=== PATIENT | female | born 1985 | race Caucasian/White ===

== ENCOUNTER → 2022-05-22 08:47 | Outpatient (BNVA) | payer OTHER, SELFPAY | PROVIDERS: Referring Provider Family Medicine; Visit Provider Specialist | DX: G56.03 Carpal tunnel syndrome, bilateral upper limbs (principal) | CPT/HCPCS: 73110 ==

== ENCOUNTER 2022-11-20 20:08 | Emergency (ER) | payer MEDICAID, SELFPAY ==
[2022-11-20 20:09] VITALS: BP 176/100; PULSE 83; RESP 18; TEMP 36.7; O2SAT 98
--- NOTE | 2022-11-20 21:12 | ED_ITS ---
HPI - Back Pain/Injury General: Chief Complaint: Back Pain/Injury Stated Complaint: Upper Back Pain Time Seen by Provider: 11/20/22 20:57 History of Present Illness: 37-year-old female comes in today with complaints of left flank pain that radiates around to her left lower abdomen. Patient reports this started last night suddenly. Patient feels like it is right under her rib. Patient reports no nausea or vomiting. Patient is unable to get comfortable with the pain. Patient reports a history of pyelonephritis but no history of renal stones. Review of the record notes major depressive disorder and anxiety disorder. Patient also takes methylphenidate for probable ADHD alth ough no definitive diagnosis in the chart. Associated symptoms: Reports abdominal pain; Deny fever(s), nausea or vomiting Review of Systems Const: Denies: fever(s) ENMT: Denies: throat pain Card: Denies: chest pain Resp: Denies: dyspnea GI: Reports: abdominal pain; Denies: nausea, vomiting, diarrhea or constipation : Reports: flank pain Musc: Reports: back pain Skin/Breast: Denies: rash PFSH ED PFSH: Social History Smoking and tobacco status: former smoker Quit status (tobacco): has tried quititng Number of times tried to quit tobacco: 4 Second hand smoke exposure: No Current occupation: [employer] Physical Exam Const: COMMON NORMALS: alert HENMT: COMMON NORMALS: normocephalic HEAD & SCALP: normocephalic Neck/C-Spine: COMMON NORMALS: full ROM Resp: COMMON NORMALS: normal respiratory effort and clear to auscultation bilaterally AUSCULTATION: clear to auscultation bilaterally Cardio: COMMON NORMALS: regular rate and regular rhythm RATE: regular rate RHYTHM: regular rhythm GI: PALPATION: Yes Tenderness to palpation present (GI) Details: LLQ : BLADDER/KIDNEY EXAM: Yes CVA tenderness on the left Back/Pelvis: GENERAL BACK: Yes CVA tenderness THORACIC SPINE/UPPER BACK: No thoracic spinal tenderness LUMBAR SPINE/LOWER BACK: No lumbar spinal tenderness and No paraspinal muscle tenderness Extremity: COMMON NORMALS: normal to inspection Neuro: SENSORIUM/ORIENTATION: Yes alert Skin: COMMON NORMALS: turgor normal GENERAL SKIN EXAM: turgor normal Course Vital Signs: Vital signs: Vital Signs Temperature 98.0 F 11/20/22 20:09 Pulse Rate 83 11/20/22 20:09 Respiratory Rate 18 11/20/22 20:09 Blood Pressure 176/100 11/20/22 20:09 Pulse Oximetry 98 11/20/22 20:09 Oxygen Delivery Me thod 11/20/22 20:09 MDM - Back Pain/Injury Medical Decision Making 37-year-old female comes in today for complaints of left flank pain radiating to her left abdomen starting last night. Patient reports unable to get any pain relief with [id number] ibuprofen. Patient denies any nausea or vomiting. Patient moves all extremities well. Some CVA tenderness is noted on percussion of the left side. No paraspinous muscle tenderness or spinal tenderness is noted. Differential diagnosis includes but not limited to gastritis, gallbladder disease, renal calculi, pyelonephritis. CT noted large amount of gallbladder stones otherwise no signs of inflammation or other abnormality. CBC and CMP was ordered and no gallbladder infection or obstruction was noted. Believe the patient's pain is probably secondary to gallbladder colic. Recommen d follow-up with surgeon for further evaluation and treatment. Patient was written for dicyclomine and hydrocodone to help control pain. Ondansetron 4 nausea. Patient reported understanding of care plan and need for follow-up or return to the ER. Labs 11/20/22 22:22 11/20/22 22:22 Radiology Impressions Abdomen/Pelvis CT 11/20/22 21:22 IMPRESSION: 1. Negative for acute inflammatory process in the abdomen or pelvis 2. Gastric surgical sutures. 3. Cholelithiasis. 4. Constipation. 5. Fluid in the uterus suspected likely related menstrual status. Laboratory Results WBC 4.9 10^3/uL (4.0-10.0) 11/20/22 22: RBC 4.49 10^6/uL (4.1-5.3) 11/20/22 22: Hgb 12.1 g/dL (11.5-15.3) 11/20/22 22: Hct 37.8 % (37.0-47.0) 11/20/22 22: MCV 84.2 fl (81-99) 11/20/22 22: MCH 26.9 pg (28.0-34.0) L 11/20/22: MCHC 32.0 g/dL (30.0-36.0) 11/20/22: RDW 13.3 % (12.1-15.1) 11/20/22: Plt Count 259 10^3/cmm (130-400) 11/20/22 22: MPV 9.4 fL (7.4-10.4) 11/20/22: Neut % (Auto) 53.4 % 11/20/22: Lymph % (Auto) 36.2 % 11/20/22: Teller % (Auto) 8.0 % 11/20/22: Eos % (Auto) 1.0 % 11/20/22: Baso % (Auto) 0.4 % 11/20/22: Neut # (Auto) 2.61 10^3/uL (1.8-7.7) 11/20/22: Lymph # (Auto) 1.8 10^3/uL (0.8-4.8) 11/20/22: Teller # (Auto) 0.4 10^3/uL (0.2-0.9) 11/20/22: Eos # (Auto) 0.1 10^3/uL (0.0-0.8) 11/20/22: Baso # (Auto) 0.0 10^3/uL (0.0-0.1) 11/20/22: Nucleated RBC % (auto) 0 % 11/20/22: Nucleated RBCs # 0.0 /100WBC 11/20/22 22: Sodium 138 mmol/L (136-145) 11/20/22 22: Potassium 4.3 mmol/L (3.5-5.1) 11/20/22: Chloride 103 mmol/L (98-107) 11/20/22: Carbon Dioxide 27 mmol/L (22-29) 11/20/22 22: Anion Gap 12.3 (5-19) 11/20/22 22: BUN 13 mg/dL (6-20) 11/20/22: Creatinine 0.8 mg/dL (0.5-0.9) 11/20/22: GFR Calculation 81.6 mL/min (90-130) L 11/20/22 22: Glucose 107 mg/dL (65-115) 11/20/22 22: Calculated Osmolality 287 mOsm/kg (285-295) 11/20/22 22: Calcium 8.4 mg/dL (8.5-10.5) L 11/20/22 22: Total Bilirubin 0.6 mg/dL (0.15-1.2) 11/20/22 22: AST U/L (0-32) 11/20/22 22: ALT 21 U/L (0-33) 11/20/22 22: Alkaline Phosphatase 53 U/L (35-105) 11/20/22 22: Total Protein 6.6 g/dL (6.6-8.7) 11/20/22: Albumin 3.5 g/dL (3.5-5.2) 11/20/22: Globulin 3.1 g/dL (1.3-4.6) 11/20/22 22: Lipase 43 U/L (13-60) 11/20/22 22: Urine Color Yellow (Yellow) 11/20/22 21:03 Urine Appearance Clear (CLEAR) 11/20/22 21: Urine pH 6 (5-7) 11/20/22 21:03 Ur Specific Fisk 1.025 (1.005-1.030) 11/20/22 21:03 Urine Protein Neg (Negative) 11/20/22 21:03 Urine Glucose (UA) Norm (Normal) 11/20/22 21:03 Urine Ketones Negative (Negative) 11/20/22 21:03 Urine Blood Neg (Negative) 11/20/22 21:03 Urine Nitrate Positive (Negative) H 11/20/22 21:03 Urine Bilirubin Neg (Negative) 11/20/22 21:03 Urine Urobilinogen Norm mg/dL (Negative) 11/20/22 21:03 Ur Leukocyte Esterase Negative (Negative) 11/20/22 21:03 Urine RBC 0-4 /hpf (0-2) H 11/20/22 21:03 Urine WBC 5-10 /hpf (0-5) H 11/20/22 21:03 Ur Squamous Epith Cells 5-10 /hpf (0-5) H 11/20/22 21:03 Amorphous Sediment Not Reportable 11/20/22 21:03 Urine Bacteria 4+ /hpf (NONE) H 11/20/22 21:03 Urine HCG, Qual Negative (Negative) 11/20/22 21:03 Discharge Plan Discharge Patient Disposition: Home Clinical Impression: Gallbladder colic, Multiple gallstones Condition: Stable Prescriptions: New ondansetron 4 mg tablet,disintegrating 4 mg PO Q8H PRN (Reason: nausea and vomiting) Qty: 10 0RF hydrocodone-acetaminophen 5-325 mg tablet 1 tab PO Q8H PRN (Reason: pain (scale score 7-10)) Qty: 10 0RF dicyclomine 20 mg tablet 20 mg PO TID PRN (Reason: gallbladder pain) Qty: 30 0RF No Action fluoxetine [Prozac] 20 mg capsule 20 mg PO DAILY buspirone 10 mg tablet 10 mg PO DAILY albuterol sulfate 90 mcg/actuation aerosol powdr breath activated 2 inh inhalation Q6H PRN methylphenidate HCl [Concerta] 18 mg tablet extended release 24hr 18 mg PO DAILY Discharge Orders: Discharge ED (Routine); Ordered 11/20/22 Ordered By: Yuan Molina Discharge Diet: Usual diet Discharge Activity: Increase activity as tolerated Patient Instructions: Abdominal Pain (ED) Activity Restrictions/Additional Instructions: Home and rest. Clear liquid diet until pain resolves. Drink plenty of water with medication. Use dicyclomine 20 mg every 8 hours to relieve abdominal pain related to the gallbladder. This may be similar to pain in the mid abdomen that refers to the back and spasms in waves. Use ondansetron as needed for nausea or vomiting. Take hydrocodone for severe pain. Follow-up with surgeon for further evaluation and treatment. Coding Level of Care Code ED [employer] for Sanaz Teixeira
--- NOTE | 2022-11-20 21:22 | CTR_ITS ---
PROCEDURE INFORMATION: Exam: CT Abdomen And Pelvis Without Contrast Exam date and time: 11/20/2022 9:34 PM Age: 37 years old Clinical indication: Pain; Other: Left flank; Additional info: Left flank pain TECHNIQUE: Imaging protocol: Computed tomography of the abdomen and pelvis without contrast. Radiation optimization: All CT scans at this facility use at least one of these dose optimization techniques: automated exposure control; mA and/or kV adjustment per patient size (includes targeted exams where dose is matched to clinical indication); or iterative reconstruction. REPORTING DATA: Count of CT and Cardiac NM exams in prior 12 months: This patient has received 0 known CTs and 0 known cardiac nuclear medicine studies in the 12 months prior to the current study. COMPARISON: No relevant prior studies available. RADIATION DOSE METRICS: Total DLP (mGy-cm): 964.63 FINDINGS: Liver: Normal. No mass. Gallbladder and bile ducts: Cholelithiasis. Pancreas: Normal. No ductal dilation. Spleen: Normal. No splenomegaly. Adrenal glands: Normal. No mass. Kidneys and ureters: Normal. No hydronephrosis. Stomach and bowel: Gastric surgical sutures. Constipation. Appendix: No evidence of appendicitis. Intraperitoneal space: Unremarkable. No free air. No significant fluid collection. Vasculature: Unremarkable. No abdominal aortic aneurysm. Lymph nodes: Unremarkable. No enlarged lymph nodes. Urinary bladder: Unremarkable as visualized. Reproductive: Fluid in the uterus suspected likely related menstrual status. Bones/joints: Unremarkable. No acute fracture. Soft tissues: Unremarkable. CT/CT kidney stone [id number] IMPRESSION: 1. Negative for acute inflammatory process in the abdomen or pelvis 2. Gastric surgical sutures. 3. Cholelithiasis. 4. Constipation. 5. Fluid in the uterus suspected likely related menstrual status.
[2022-11-20 21:23] LABS: Bilirubin Urine Neg (Negative); Blood Urine Neg (Negative); Glucose Urine UA Norm (Normal); Ketones Urine Negative (Negative); Leukocyte Esterase Urine Negative (Negative); Protein Urine Neg (Negative); Specific Gravity, Urine 1.025 (1.005-1.030); Urine Appearance Clear (CLEAR); Urine Color Yellow (Yellow); Urobilinogen Urine Norm (Negative); pH Urine 6 (5-7)
[2022-11-20 21:24] LABS: Nitrate Urine Positive (Negative)
[2022-11-20 21:27] LABS: Add Urine Microscopic? YES
[2022-11-20 21:28] LABS: Bacteria Urine 4+ /hpf; RBC Urine 0-4 /hpf (0-2)
[2022-11-20 21:29] LABS: Add Urine Culture? Yes
[2022-11-20] MEDS: ketorolac 30 mg/mL INJ IM (21:44)
[2022-11-20] MEDS: morphine 4 mg/mL SDV 1 mL IM (21:44)
[2022-11-20 22:27] LABS: Basophils % 0.4 %; Eosinophils # 0.1 10^3/uL (0.0-0.8); Hematocrit 37.8 % (37.0-47.0); Hemoglobin 12.1 g/dL (11.5-15.3); Lymphocytes # 1.8 10^3/uL (0.8-4.8); Lymphocytes % 36.2 %; Mean Corpuscular Hemoglobin 26.9 pg (28.0-34.0); Mean Corpuscular Volume 84.2 fl (81-99); Mean Platelet Volume 9.4 fL (7.4-10.4); Monocytes # 0.4 10^3/uL (0.2-0.9); Neutrophils # 2.61 10^3/uL (1.8-7.7); Neutrophils % 53.4 %; Nucleated Red Blood Cells % 0 %; Platelet Count 259 10^3/cmm (130-400); Red Blood Count 4.49 10^6/uL (4.1-5.3); Red Cell Distribution Width 13.3 % (12.1-15.1); White Blood Count 4.9 10^3/uL (4.0-10.0)
[2022-11-20 22:40] LABS: Albumin Level 3.5 g/dL (3.5-5.2); Alkaline Phosphatase 53 U/L (35-105); Anion Gap 12.3 (5-19); Blood Urea Nitrogen 13 mg/dL (6-20); Calcium 8.4 mg/dL (8.5-10.5); Carbon Dioxide 27 mmol/L (22-29); Chloride 103 mmol/L (98-107); Globulin 3.1 g/dL (1.3-4.6); Glomerular Filtration Rate 81.6 mL/min (90-130); Glucose 107 mg/dL (65-115); Lipase 43 U/L (13-60); Osmolality Calculated 287 mOsm/kg (285-295); Potassium 4.3 mmol/L (3.5-5.1); Sodium 138 mmol/L (136-145); Total Bilirubin 0.6 mg/dL (0.15-1.2); Total Protein 6.6 g/dL (6.6-8.7)
[2022-11-20 23:19] LABS: Alanine Aminotransferase 21 U/L (0-33)
--- NOTE | 2022-11-21 09:36 | DCPLANNER ---
Addendum entered by Rizwana Nix 12/11/22 08:15: Patient had a follow up appointment scheduled with general surgery - patient did not attend appointment Addendum entered by Rizwana Nix 12/09/22 08:18: Patient has a follow up appointment scheduled for Saturday, December 10, 2022 at 2:[address] Moreira at general surgery. Clinic will call patient with appointment information. Original Note: manager in training had message to schedule a follow up appointment for patient with general surgery. manager in training sent patients information to the front office staff at general surgery. Patients information will be printed and reviewed. Clinic will call patient with appointment information.
== END 2022-11-20 23:06 | disposition home or self-care (01) ==
PROVIDERS: Emergency Provider Nurse Practitioner Family
DX: K80.20 Calculus of gallbladder without cholecystitis without obstruction (principal); Z87.891 Personal history of nicotine dependence
CPT/HCPCS: 74176; 80053; 81001; 81025; 83690; 85025; 87077; 87086; 87186; 96372; 99285; J1885; J2270

== ENCOUNTER → 2023-06-24 14:32 | Outpatient (BNVA) | payer BC, SELFPAY | PROVIDERS: PCP Family Medicine; Referring Provider Nurse Practitioner Family; Visit Provider Surgery | DX: K92.0 Hematemesis (principal); K92.1 Melena; R14.0 Abdominal distension (gaseous); K21.9 Gastro-esophageal reflux disease without esophagitis | CPT/HCPCS: 99204 ==

== ENCOUNTER 2023-08-06 08:40 | Day surgery (SDC) | payer BC, MEDICAID, SELFPAY ==
[2023-08-06 09:07] VITALS: BP 140/91; PULSE 84; RESP 18; TEMP 36.4; O2SAT 94; BMI 43.6
[2023-08-06] MEDS: sodium chloride 0.9% 1,000 ML 30 ML IV (09:27)
--- NOTE | 2023-08-06 09:27 | ANES.PREANE2 ---
Pre-Anesthetic Assessment Height/Weight: Height 1.55 m Weight 104.78 kg Temp Pulse Resp BP Pulse Ox O2 Del Method 97.5 F L 84 18 140/91 94 Room Air 08/06/23 09:07 08/06/23 09:07 08/06/23 09:07 08/06/23 09:07 08/06/23 09:07 08/06/23 09:07 Preop Diagnosis: GERD/Abdominal bloating Operation Date: 08/06/23 10:00 Proposed Procedures p [id number] egd [id number] colon G0121 screen colon A risk k92.0,k92.1,R14.0,k21.9(Not Applicable) - DO jennifer Apodaca Colonoscopy(Not Applicable) - Cricket Moreira DO Familial anesthetic complications: None Was Beta Lyly taken within 24 hours: N/A Was Clonidine taken within 24 hours: N/A Last intake: Intake Last Liquid Date 08/05/23 Last Liquid Time 22:00 Last Solid Date 08/04/23 Last Solid Time 23:00 Social Alcohol (Hasn't had a drink in 7 weeks, used to drink daily) and No tobacco Exam alert, oriented x 3, clear to auscultation bilaterally and regular rate & rhythm Airway Submandibular: within normal limits Cervical ROM: within normal limits Mallampati: Class II Dentition: false and partials History/ROS No significant history except as noted and No significant complaints Pulmonary Asthma, Exertional Dyspnea and Sleep Apnea CV/HEM Hypertension None reported Hepatic High liver count per patient GI Gastroesophageal Reflux Disease Metabolic Morbid Obesity Musc/skel Lower Back Pain Neuropsych Anxiety, Depression, Headache (BP related) and Neuropathy Anesthetic Plan ASA status: 3 Anesthesia: Anesthesia Evaluation, General and MAC Risk of > 500 ml blood loss (7ml/kg in children): No Medications/Allergies Home Medications Medication Instructions Recorded Confirmed Last Taken Type albuterol sulfate 90 mcg/actuation 2 inh inhalation Q6H PRN Shortness 08/02/21 08/06/23 4 Months Ago History breath activated powder inhaler Of Breath ~04/05/23 fluoxetine 20 mg capsule (Prozac) 20 mg PO DAILY 08/02/21 08/04/23 08/03/23 History pantoprazole 40 mg tablet,delayed 40 mg PO BID 6 weeks #84 tabs 06/24/23 08/04/23 08/03/23 Rx release (Protonix) lisinopril 10 mg tablet 10 mg PO DAILY 08/04/23 08/04/23 08/03/23 History Allergies Allergy/AdvReac Type Severity Reaction Status Date / Time escitalopram [From Lexapro] Allergy Severe Unknown Verified 08/04/23 11:17 cefuroxime [From Ceftin] Allergy Intermediate Hives. Verified 08/04/23 11:17 [facility] Anesthesia Surgical History (Updated 06/24/23 @ 15:14 by Cricket Moreira DO) History of sleeve gastrectomy History of tonsillectomy and adenoidectomy Hx laparoscopic cholecystectomy Hx of section Social History Smoking and tobacco/nicotine status: former use of tobacco/nicotine Quit status (tobacco/nicotine): has tried quititng Number of times tried to quit tobacco: 4 Second hand smoke exposure: No Current occupation: [employer] Female Reproductive History Date of last menstrual period: 07/26/23 Data Anesthesia Cardiac Studies: No Data to Display
[2023-08-06 09:33] LABS: OR HCG Qualitative Urine Negative (Negative)
--- NOTE | 2023-08-06 12:53 | PM.HP ---
Providers/Chief Complaint Primary Care Provider: Donaldo Nicholson Chief Complaint: 25134 G0121 History of Present Illness Estela Kolb is a 38 year old female Review of Systems General: Reports: 10 or more systems reviewed and unremarkable except in HPI and below Medications/Allergies Home Medications Medication Instructions Recorded Confirmed Last Taken Type albuterol sulfate 90 mcg/actuation 2 inh inhalation Q6H PRN Shortness 08/02/21 08/06/23 4 Months Ago History breath activated powder inhaler Of Breath ~04/05/23 fluoxetine 20 mg capsule (Prozac) 20 mg PO DAILY 08/02/21 08/04/23 08/03/23 History pantoprazole 40 mg tablet,delayed 40 mg PO BID 6 weeks #84 tabs 06/24/23 08/04/23 08/03/23 Rx release (Protonix) lisinopril 10 mg tablet 10 mg PO DAILY 08/04/23 08/04/23 08/03/23 History Allergies Allergy/AdvReac Type Severity Reaction Status Date / Time escitalopram [From Lexapro] Allergy Severe Unknown Verified 08/04/23 11:17 cefuroxime [From Ceftin] Allergy Intermediate Hives. Verified 08/04/23 11:17 PFSH Acute PFSH: Surgical History History of sleeve gastrectomy History of tonsillectomy and adenoidectomy Hx laparoscopic cholecystectomy Hx of section Social History Smoking and tobacco/nicotine status: former use of tobacco/nicotine Quit status (tobacco/nicotine): has tried quititng Number of times tried to quit tobacco: 4 Second hand smoke exposure: No Current occupation: [employer] Female Reproductive History: Date of last menstrual period: 07/26/23 Vitals/I&O/Wt Last Vital Signs Temp 97.5 F L 08/06/23 09:07 Pulse 84 08/06/23 09:07 Resp 18 08/06/23 09:07 BP 140/91 08/06/23 09:07 Pulse Ox 94 08/06/23 09:07 O2 Del Method Room Air 08/06/23 09:07 Weight last 48 hrs Weight 231 lb A&P Assessment and plan (1) GERD (gastroesophageal reflux disease): (2) Hematochezia: (3) Bloating: Plan EGD and colonoscopy Attestations Medical Necessity Statement*: home Coding Level of Care Code Acute Code for g Fwd Diagnoses GERD (gastroesophageal reflux disease) K21.9 Hematochezia K92.1 Bloating R14.0
[2023-08-06 13:22] VITALS: BP 111/69; PULSE 88; RESP 16; TEMP 36.2; O2SAT 95
[2023-08-06 13:32] VITALS: BP 129/86; PULSE 88; RESP 16; O2SAT 96
--- NOTE | 2023-08-06 17:49 | ANE.PACU2 ---
Inpatient post-anesthesia follow up: Airway intact: Yes Vital signs: Temperature 97.2 F Pulse Rate 88 Respiratory Rate 16 Blood Pressure 129/86 Pulse Oximetry 96 Oxygen Delivery Me thod Room Air Oxygen Flow Rate 2 Fraction of Inspir ed Oxygen Hydration adequate: Yes Nausea and vomiting: No Pain level: 2 Mental status: Baseline
== END 2023-08-06 13:51 | disposition home or self-care (01) ==
PROVIDERS: Anesthesiology; PCP Family Medicine; Visit Provider Surgery
PROC: 0DJ08ZZ Inspection of Upper Intestinal Tract, Via Natural or Artificial Opening Endoscopic (ICD-10-PCS; CPT 43235; principal; 2023-08-06 10:00)
PROC: 0DJD8ZZ Inspection of Lower Intestinal Tract, Via Natural or Artificial Opening Endoscopic (ICD-10-PCS; CPT 45378; 2023-08-06 10:00)
DX: K92.0 Hematemesis (principal); K92.1 Melena; R14.0 Abdominal distension (gaseous); K21.9 Gastro-esophageal reflux disease without esophagitis; K64.8 Other hemorrhoids; K44.9 Diaphragmatic hernia without obstruction or gangrene; K29.50 Unspecified chronic gastritis without bleeding; J45.909 Unspecified asthma, uncomplicated; G47.30 Sleep apnea, unspecified; I10 Essential (primary) hypertension; Z87.891 Personal history of nicotine dependence
CPT/HCPCS: 43239; 45378; 76937; 81025; 84703; 88305; 88342; J2704; J7030

== ENCOUNTER 2023-09-29 23:56 | Emergency (ER) | payer BC, MEDICAID, SELFPAY ==
[2023-09-30 00:02] VITALS: BP 192/121; PULSE 85; RESP 17; TEMP 36.9; O2SAT 96; BMI 42.5
--- NOTE | 2023-09-30 00:16 | XRR_ITS ---
PROCEDURE INFORMATION: Exam: XR Right Hand Exam date and time: 09/30/2023 12:26 AM Age: 38 years old Clinical indication: Injury or trauma; Other: Llac; Laceration; Right; Middle finger; Patient HX: Small lac to volar surface of third digit. ; Additional info: Fb TECHNIQUE: Imaging protocol: Radiologic exam of the right hand. Views: 3 or more views. COMPARISON: No relevant prior studies available. FINDINGS: Bones/joints: No acute fracture or dislocation is noted. The skeletal structures seem age-appropriate. Soft tissues: Unremarkable. XR/XR hand RT min 3V* [id number] IMPRESSION: No acute findings.
--- NOTE | 2023-09-30 00:16 | XRR_ITS ---
PROCEDURE INFORMATION: Exam: XR Left Hand Exam date and time: 09/30/2023 12:24 AM Age: 38 years old Clinical indication: Injury or trauma; Laceration; Left; Index finger; Patient HX: Small lac to second digit. ; Additional info: Fb TECHNIQUE: Imaging protocol: Radiologic exam of the left hand. Views: 3 or more views. COMPARISON: No relevant prior studies available. FINDINGS: Bones/joints: No acute fracture or dislocation is noted. The skeletal structures seem age-appropriate. Soft tissues: Index finger swelling. No foreign body noted. Overlying gauze. XR/XR hand LT min 3V* [id number] IMPRESSION: No acute osseous findings.
--- NOTE | 2023-09-30 00:17 | ED_ITS ---
HPI - Skin/Abscess/Foreign Bdy General: Chief complaint: Skin/Abscess/Foreign Body Stated complaint: skin reaction Time Seen by Provider: 09/30/23 00:10 Source: patient Mode of arrival: ambulatory Limitations: no limitations History of Present Illness: 38-year-old female who states she feels like she has metal shavings in her hand she has been picking at both hands and has been making superficial cuts try to get the shavings out she denies any SI or HI she did answer my questions appropriately here. 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 but she had some loose pieces and then did pull 1 piece out of her finger she states Associated symptoms: Deny chills, fever(s), nausea or vomiting Review of Systems Const: Denies: fever(s) or chills ENMT: Denies: throat pain or dental pain Card: Denies: chest pain Resp: Denies: dyspnea GI: Denies: abdominal pain, nausea, vomiting or diarrhea Musc: Denies: neck pain or back pain Skin/Breast: Reports: pruritus; Denies: rash Neuro: Denies: headache(s) PFSH ED PFSH: Surgical History History of sleeve gastrectomy Hx laparoscopic cholecystectomy Hx of section History of tonsillectomy and adenoidectomy Social History Smoking and tobacco/nicotine status: former use of tobacco/nicotine Quit status (tobacco/nicotine): has tried quititng Number of times tried to quit tobacco: 4 Second hand smoke exposure: No Current occupation: [employer] Physical Exam Const: COMMON NORMALS: no acute distress, patient oriented x3 and healthy appearing HENMT: COMMON NORMALS: normocephalic and atraumatic HEAD & SCALP: normocephalic and atraumatic Neck/C-Spine: COMMON NORMALS: full ROM and supple Chest: COMMONS NORMALS: normal inspection of the chest Resp: COMMON NORMALS: normal respiratory effort Cardio: COMMON NORMALS: regular rate, regular rhythm and No murmurs present (Cardio) RATE: regular rate RHYTHM: regular rhythm Extremity: COMMON NORMALS: full ROM Neuro: COMMON NORMALS: patient oriented x3, moves all extremities and no focal motor deficits Psych: COMMON NORMALS: mental status grossly normal, Normal thought process present and cooperative THOUGHT PROCESS: Normal thought process present Skin: COMMON NORMALS: no wounds NARRATIVE SKIN EXAM: Cracked skin from where she is picked on her skin no foreign bodies noted Course Vital Signs: Vital signs: Vital Signs Temperature 98.5 F 09/30/23 00:02 Pulse Rate 85 09/30/23 00:02 Respiratory Rate 17 09/30/23 00:02 Blood Pressure 192/121 09/30/23 00:02 Pulse Oximetry 96 09/30/23 00:02 Oxygen Delivery Me thod Room Air 09/30/23 00:02 MDM - Skin/Abscess/Foreign Bdy Medicial Decision Making Patient presents here with feeling of foreign body under skin and she had used wound while she could have had some metal in her skin x-ray shows no signs of any metal shaving she does have dry skin she is to use lotion she does not appear acutely psychotic she stable for discharge follow-up PCP return if worsening. Medical Records I reviewed the patient's medical records. XR interpretation done by ED provider, pending radiology final review ED provider radiology interpretation(s): xr hand bilateral: no foreign bodies Discharge Plan Discharge Patient Disposition: Home Clinical Impression: Foreign body hand Condition: Stable Prescriptions: No Action fluoxetine [Prozac] 20 mg capsule 20 mg PO DAILY albuterol sulfate 90 mcg/actuation aerosol powdr breath activated 2 inh inhalation Q6H PRN (Reason: Shortness Of Breath) pantoprazole [Protonix] 40 mg tablet,delayed release (DR/EC) 40 mg PO BID 42 Days Qty: 84 0RF lisinopril 10 mg tablet 10 mg PO DAILY Discharge Orders: Discharge ED (Routine); Ordered 09/30/23 Ordered By: Marcos Pack Referrals: Donaldo Nicholson [Primary Care Provider] - Discharge Diet: Advance as tolerated Discharge Activity: Resume usual activity Patient Instructions: Soft Tissue Foreign Body (ED) Coding Level of Care Code ED Certified Indoor Environmentalist for Sanaz Teixeira
[2023-09-30 00:38] VITALS: BP 161/122
== END 2023-09-30 00:40 | disposition home or self-care (01) ==
PROVIDERS: Emergency Provider Emergency Medicine; PCP Family Medicine
DX: S60.552A Superficial foreign body of left hand, initial encounter (principal); S60.551A Superficial foreign body of right hand, initial encounter; X58.XXXA Exposure to other specified factors, initial encounter; Z87.891 Personal history of nicotine dependence
CPT/HCPCS: 73130; 99283

== ENCOUNTER → 2024-03-10 15:01 | Outpatient (BNVA) | payer BC, MEDICAID, SELFPAY | PROVIDERS: PCP Family Medicine; Referring Provider Nurse Practitioner Family; Visit Provider Specialist | DX: G56.03 Carpal tunnel syndrome, bilateral upper limbs (principal) | CPT/HCPCS: 73130 ==

== ENCOUNTER 2025-03-03 15:15 | Emergency (ER) | payer OTHER, BC, MEDICAID, SELFPAY ==
[2025-03-03 15:15] VITALS: BP 169/119; PULSE 100; RESP 16; O2SAT 92; BMI 43.4
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
[2025-03-03] MEDS: sodium chloride 0.9% 1,000 ML 999 ML IV (16:41)
[2025-03-03] MEDS: lisinopril 10 mg Tablet PO (16:43)
[2025-03-03 16:46] VITALS: BP 174/110
[2025-03-03 16:52] LABS: Basophils % 0.9 %; Eosinophils # 0.1 10^3/uL (0.0-0.8); Eosinophils % 2.4 %; Hematocrit 40.7 % (36-47); Lymphocytes # 1.5 10^3/uL (0.8-4.8); Lymphocytes % 34.1 %; Mean Corpuscular HGB Conc 31.9 g/dL (30-55); Mean Corpuscular Hemoglobin 26.2 pg (27-33); Mean Corpuscular Volume 82.1 fl (85-98); Mean Platelet Volume 9.1 fL (7.4-10.4); Monocytes # 0.4 10^3/uL (0.2-0.9); Monocytes % 9.9 %; Neutrophils % 51.8 %; Nucleated Red Blood Cells % 0 %; Platelet Count 197 10^3/cmm (157-399); Red Blood Count 4.96 10^6/uL (3.85-5.65); Red Cell Distribution Width 17.8 % (12.1-15.1); White Blood Count 4.25 10^3/uL (3.29-11.43)
[2025-03-03 17:01] LABS: Bilirubin Urine Negative (Negative); Blood Urine Negative (Negative); Glucose Urine UA Negative (Normal); Ketones Urine Negative (Negative); Leukocyte Esterase Urine Negative (Negative); Nitrate Urine Negative (Negative); Protein Urine Negative (Negative); Specific Gravity, Urine 1.004 (1.005-1.030); Urine Appearance Clear (CLEAR); Urine Color Yellow (Yellow); pH Urine 7.5 (5-7)
[2025-03-03 17:03] LABS: HCG Qualitative Urine. Negative (Negative)
[2025-03-03 17:07] LABS: Add Urine Microscopic? YES; Bacteria Urine None Seen /hpf; Hyaline Casts Urine 0-4 /lpf; RBC Urine 0-2 /hpf (0-2); Squamous Epithelial Cell Urine 0-5 /hpf (0-5); WBC Urine 0-5 /hpf (0-5)
[2025-03-03 17:09] LABS: Add Urine Culture? No
[2025-03-03 17:10] LABS: Alanine Aminotransferase 133 U/L (0-33); Albumin Level 3.8 g/dL (3.5-5.2); Alcohol Level 281 mg/dL (0-10); Alkaline Phosphatase 65 U/L (35-105); Blood Urea Nitrogen 4 mg/dL (6-20); Calcium 8.2 mg/dL (8.5-10.5); Carbon Dioxide 22 mmol/L (22-29); Chloride 98 mmol/L (98-107); Creatinine Clr Calc Pharmacy 141.3098; Globulin 3.5 g/dL (1.3-4.6); Glomerular Filtration Rate 111.9 mL/min (90-130); Glucose 91 mg/dL (65-115); Osmolality Calculated 278 mOsm/kg (285-295); Sodium 136 mmol/L (136-145); Total Bilirubin 0.8 mg/dL (0.15-1.2); Total Protein 7.3 g/dL (6.6-8.7)
[2025-03-03 17:12] LABS: Anion Gap 20.2 (5-19); Aspartate Amino Transferase 141 U/L (0-32); Potassium 4.2 mmol/L (3.5-5.1)
--- NOTE | 2025-03-03 17:52 | PC.NURSE ---
this nurse assumed care from BANNER team @[phone].
[2025-03-03 18:07] VITALS: BP 140/89; PULSE 93; O2SAT 91
== END 2025-03-03 18:25 | disposition home or self-care (01) ==
PROVIDERS: Emergency Provider Emergency Medicine; PCP Family Medicine
DX: T76.21XA Adult sexual abuse, suspected, initial encounter (principal); Z87.891 Personal history of nicotine dependence; X58.XXXA Exposure to other specified factors, initial encounter
CPT/HCPCS: 36415; 80053; 80307; 81001; 81025; 85025; 99283; J7030; J9999

== ENCOUNTER 2025-05-23 23:46 | Inpatient (IN) | payer BC, SELFPAY ==
[2025-05-23 23:47] VITALS: BP 175/108; PULSE 91; RESP 18; TEMP 36.9; O2SAT 97; BMI 37.8
[2025-05-24] VITALS (13 sets, daily range): BP systolic 116–174; BP diastolic 60–106; PULSE 82–110; RESP 16–18; TEMP 36.3–36.8; O2SAT 95–98
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
--- OUTSIDE RECORDS SUMMARY | 2025-05-24 | XMS_ITS | Patient Health Record ---
Author Organization [facility] Address [address] [place], [place] [id number] Care Team Providers Care Mine Technician Name Role Phone Bia Robbins Unavailable [phone] Allergies Allergen (clinical drug ingredient) Drug/Non Drug Allergy documented on EMR Reaction Allergy Type Onset Date Status Ceftin Hives Drug Allergy Active escitalopram Lexapro Unknown Drug Allergy Acti ve Reason For Referral No Information Medications Medication SIG (Take, Route, Frequency, Duration) Notes Start Date End Date Status Multivitamins - Capsule Orally daily Active Triamcinolone Acetonide 0.025 % Cream 1 application to affected area Externally Twice a day 01/27/2017 Active Cyclobenzaprine HCl 5 MG Tablet 1 tablet as needed Orally at bedtime 12/17/2018 Active Adderall XR 30 MG Capsule Extended Release 24 Hour 1 capsule in the morning Orally once a day 11/11/2019 Active Adderall 15 MG Tablet 1 tablet in the afternoon Orally Once a day 11/26/2019 Active Erythromycin 2 % Solution apply small am ount externally twice a day Externally Twice a day 09/04/2016 Active PROzac 20 MG Capsule 1 capsule Orally On ce a day Active ProAir HFA 108 (90 Base) MCG/ACT Aerosol Solution 2 puffs as needed Inhalation every 4 hrs Active Fluticasone-Salmeterol 100-50 MCG/DOSE Aerosol Powder Breath Activated 1 puff Inhalation Twice a day 10/19/2018 Active busPIRone HCl 15 MG Tablet 1 tablet Oral ly Twice a day 10/14/2019 Active Immunizations Vaccine Route Administration Date Status Comme nts BOOSTRIX Tetanus Toxoid, Reduced Diphtheria Toxoid and Acellular Pertusis Unknown 07/21/2014 Administered DT Unknown 09/29/2004 Administered Only year gi felipa. Influenza 3 yrs+ IIV4 (Fluzone) Unknown 07/21/2014 Administered Pneumococcal Conjugate (historical) Unknown 01/05/2013 Administered Social History Tobacco Use: Social History Observation Description Date Details (start date - stop date) Current Smoker NA - NA Social History Social History Social Info Question Answer Notes Tobacco Use (MU) Status: Current Smoker vapes, sm okes a few cig a day, started to smoke rt after Smoke Exposure No Additional Details Category Social Info Options Details Social History Occupation: [employer]. Alcohol: Occasional Recreational drug use: no Exercise: Light Home smoke detector use: yes Caffeine: None or very rar e Marital Status: Lives with jacinto hahn (Emmanuelle (05/04), Flakita (08/11)); 01/13-- (Alireza Kassidy--metastatic small intestine cancer) Seat Belt Use: always Section Notes: Hearing: not impaired Vision impaired: contacts/glasses Highest Education Level Attained: high school graduate Hearing: not impaired Vision impaired: contacts/glasses Highest Education Level Attained: high school graduate Hearing: not impaired Vision impaired: contacts/glasses Highest Education Level Attained: high school graduate Hearing: not impaired Vision impaired: contacts/glasses Highest Education Level Attained: high school graduate Hearing: not impaired Vision impaired: contacts/glasses Highest Education Level Attained: high school graduate Hearing: not impaired Vision impaired: contacts/glasses Highest Education Level Attained: high school graduate Hearing: not impaired Vision impaired: contacts/glasses Highest Education Level Attained: high school graduate Hearing: not impaired Vision impaired: contacts/glasses Highest Education Level Attained: high school graduate Hearing: not impaired Vision impaired: contacts/glasses Highest Education Level Attained: high school graduate Hearing: not impaired Vision impaired: contacts/glasses Highest Education Level Attained: high school graduate Hearing: not impaired Vision impaired: contacts/glasses Highest Education Level Attained: high school graduate Hearing: not impaired Vision impaired: contacts/glasses Highest Education Level Attained: high school graduate Hearing: not impaired Vision impaired: contacts/glasses Highest Education Level Attained: high school graduate Hearing: not impaired Vision impaired: contacts/glasses Highest Education Level Attained: high school graduate Hearing: not impaired Vision impaired: contacts/glasses Highest Education Level Attained: high school graduate Hearing: not impaired Vision impaired: contacts/glasses Highest Education Level Attained: high school graduate Hearing: not impaired Vision impaired: contacts/glasses Highest Education Level Attained: high school graduate Hearing: not impaired Vision impaired: contacts/glasses Highest Education Level Attained: high school graduate Hearing: not impaired Vision impaired: contacts/glasses Highest Education Level Attained: high school graduate Hearing: not impaired Vision impaired: contacts/glasses Highest Education Level Attained: high school graduate Hearing: not impaired Vision impaired: contacts/glasses Highest Education Level Attained: high school graduate Hearing: not impaired Vision impaired: contacts/glasses Highest Education Level Attained: high school graduate Hearing: not impaired Vision impaired: contacts/glasses Highest Education Level Attained: high school graduate Hearing: not impaired Vision impaired: contacts/glasses Highest Education Level Attained: high school graduate Hearing: not impaired Vision impaired: contacts/glasses Highest Education Level Attained: high school graduate Hearing: not impaired Vision impaired: contacts/glasses Highest Education Level Attained: high school graduate Hearing: not impaired Vision impaired: contacts/glasses Highest Education Level Attained: high school graduate Hearing: not impaired Vision impaired: contacts/glasses Highest Education Level Attained: high school graduate Problems Problem Type SNOMED Code ICD Code Onset Dates Problem Status W/U Status Risk Notes Problem Depression (964682204) Depression (F32.9) Active confirmed Problem Endometriosis (131418053) Endometriosis (N80.9) Active confirmed Problem Mild persistent asthma (010449182) Mild persistent asthma (J45.30) Active confirmed Problem Generalized anxiety disorder (88894997) Generalized anxiety disorder (F41.1) Active confirmed Problem Impaired fasting glycaemia (272228187) Impaired fasting blood sugar (R73.01) Active confirmed Problem History of cardiomyopathy (331376807681600 ) History of cardiomyopathy (Z86.79) Active confirmed 2013 Problem Moderate major depression, single episode (88114260) Moderate single current episode of major depressive disorder (F32.1) Active confirmed Problem Severe recurrent major depression without psychotic features (04424956) Severe episode of recurrent major depressive disorder, without psychotic features (F33.2) Active confirmed Problem Adult attention deficit disorder (790776242) Attention deficit disorder of adult (F98.8) Active confirmed Plan Of Treatment No Information Insurance Providers Payer Name Payer Address Payer Phone Subscriber Number Group Number Insured Name Patient Relationship to Insured Coverage Start Date Coverage End Date Jeyson Mead [address] [place] [address] [id number] Estela Kolb Self - patient is the insured [employer] [address] [place] [address] [id number] Estela Kolb Self - patient is the insured Medical (General) History Medical History History ICD Code MRSA --furuncle L hip (2014); cleared 20 Asthma Migraine Cellulitis of face Syndrome, carpal tunnel Obesity Vaginal candidiasis Internal hemorrhoids without mention of complication Viral pneumonia, unspecified Amenorrhea Abnormal fasting blood sugar cardiomyopathy-2012 DM Retinopathy exam 10/24/15-no retinopat hy Elevated blood pressure (not hypertensio n) Elevated blood pressure (not hypertensio n) Obesity (BMI 35.0-39.9 without comorbidi ty) Surgical History Surgery Date(Month/Year) Bariatric surgery -Dr Oliveira 09/2016 C-sections x2 - Dr. Porter D&C - Dr. Porter 2007 Ovarian Cyst - Dr. Porter Tubes in ears x5 T&A 9 yo I & D Post Op Wound Infection Left Hip D luis [facility] 10-20-14 Hospitalization History Reason Date(Month/Year) Major depression 2006 Major depression, suicide attempt (Tamiko victor) 12/23/18-12/28/18
--- OUTSIDE RECORDS SUMMARY | 2025-05-24 | XMS_ITS | Clinical Summary ---
Author Organization [facility] Address [address] [place] [address] Care Team Providers Care Colorman Name Role Phone Donaldo Nicholson MD Primary Care Provider [phone] Allergies Active Allergy Reactions Criticality Noted Date Comments Cefuroxime Axetil Hives High 05/30/2021 Ciprofloxacin Hives High 12/23/2022 Escitalopram Unknown High 05/10/2025 Medications furosemide (LASIX) 20 mg tabletIndication s:Benign hypertension Take 1 Tablet (20 mg) by mouth every 12 hours as needed for Pain. 90 Tablet 1 5 Active pantoprazole (PROTONIX) 40 mg Tablet, Delayed Release (E.C.)Indication s:Epigastric pain Take 1 Tablet (40 mg) by mouth 2 times daily. 100 Tablet 3 5 Active lisinopriL (PRINIVIL) 5 mg tabletIndication s:Benign hypertension Take 1 Tablet (5 mg) by mouth daily. 100 Tablet 3 5 Active FLUoxetine (PROzac) 20 mg capsuleIndicatio ns:Generalized anxiety disorder Take 1 Capsule (20 mg) by mouth daily. 30 Capsule 2 5 Active promethazine-dex tromethorphan (PHENERGAN-DM) 6.25-15 mg/5 mL syrupIndications :Upper respiratory tract infection, unspecified type Take 5 mL by mouth every 6 hours as needed for Cough. 120 mL 1 5 Active albuterol sulfate HFA 90 mcg/actuation aerosol inhalerIndicatio ns:Mild intermittent asthma without complication Take 2 Puffs by inhalation every 6 hours as needed for Shortness of Breath. 6.7 Gram 5 5 Active ondansetron (ZOFRAN ODT) 4 mg Tablet, Rapid Dissolve Take 1 Tablet (4 mg) by mouth every 8 hours as needed for Nausea/Emesis. Dissolve tablet on top of tongue, then swallow with saliva. 20 Tablet 5 Active prochlorperazine maleate (COMPAZINE) 10 mg tablet Take 1 Tablet (10 mg) by mouth every 6 hours as needed for Nausea. 25 Tablet 5 Active clindamycin HCL (CLEOCIN) 300 mg Capsule Take 1 Capsule (300 mg) by mouth 3 times daily for 7 days. 21 Capsule 5 05/17/20 25 chlorhexidine gluconate 0.12 % Mouthwash 15 mL by Mouth/Throat route 2 times daily for 10 days. 300 mL 5 05/20/20 25 mupirocin (BACTROBAN) 2 % Ointment Apply to affected area 2 times daily for 7 days. 22 Gram 5 05/17/20 25 Active Problems Problem Noted Date Diagnosed Date Benign hypertension 07/08/2023 Biliary colic 12/27/2022 H/O gastric sleeve 12/25/2022 Right upper quadrant pain 12/24/2022 Elevated liver enzymes 12/24/2022 Cholelithiases 12/24/2022 Prediabetes 12/24/2022 Morbid obesity with body mass index of 40.0-49.9 02/22/2022 Tobacco use 02/22/2022 Generalized anxiety disorder 05/30/2021 Recurrent major depressive disorder, in partial remission 05/30/2021 PTSD (post-traumatic stress disorder) 05/30/2021 ADHD 05/30/2021 Hx of tubal ligation 05/30/2021 History of tonsillectomy 05/30/2021 History of bariatric surgery 05/30/2021 Mild intermittent asthma without complication Encounters Date Type Department Care Team Description 05/10/2025 4:33 PM CDT - 05/10/2025 5:22 PM CDT Emergency [facility] Emergency Medicine [address] [place] [address] Dental infection (Primary Dx); Cellulitis of face Discharge Disposition: Home or Self Care 05/10/2025 External Device Data ST[facility] ABSTRACTION Provider, Abstract 05/10/2025 External Device Data [facility] ABSTRACTION Provider, Abstract 05/10/2025 Travel 05/09/2025 3:59 AM CDT - 05/09/2025 5:35 AM CDT Emergency [address] [address] Harry Beauchamp MD Alcoholism ([facility]) (Primary Dx) Discharge Disposition: Home or Self Care 05/09/2025 Travel 05/04/2025 External Device Data STL ABSTRACTION Provider, Abstract 04/13/2025 External Device Data [facility] ABSTRACTION Provider, Abstract 04/13/2025 External Device Data [facility] ABSTRACTION Provider, Abstract 03/16/2025 External Device Data [facility] ABSTRACTION Provider, Abstract 03/16/2025 External Device Data [facility] ABSTRACTION Provider, Abstract 03/15/2025 External Device Data ST[facility] ABSTRACTION Provider, Abstract 03/14/[address] [address] Donaldo Nicholson MD appointment 03/12/2025 6:42 PM CDT - 03/12/2025 9:05 PM CDT Emergency [address] [address] Matthew Inman MD COVID-19 virus detected (Primary Dx); Nausea and vomiting, unspecified vomiting type Discharge Disposition: Home or Self Care 03/12/2025 Travel 03/10/2025 8:44 PM CDT - 03/10/2025 10:15 PM CDT [address] [address] Matthew Inman MD COVID-19 virus detected (Primary Dx); Mild intermittent asthma without complication Discharge Disposition: Home or Self Care 03/10/2025 Travel 03/09/2025 8:00 AM CDT Office Visit [address] [place] [address] Anya Acuña, AMMY Body aches (Primary Dx); Cough, unspecified type; Upper respiratory tract infection, unspecified type 03/07/2025 Orders Only [facility] Health Information Management [place] [address] [place] [address] Provider, Abstract 03/03/2025 7:45 AM CDT - 03/03/2025 11:59 PM CDT Hospital Encounter [facility] [place] [address] [facility] [address] [place] [address] Ambulance, [facility] Discharge Disposition: [facility] 02/22/2025 External Device Data STL ABSTRACTION Provider, Abstract from Last 3 Months Immunizations Immunization Administration Dates Next Due (ADACEL/BOOSTRIX)(10 YR UP) TDAP VACCINE, 0.5ML, IM 07/21/2014,07/19/2013 INFLUENZA VACCINE QUADRIVALENT 6 MOS UP IM 07/21 Influenza Seasonal Unspecified Formulation IM Family History Medical History Relation Name Comments No Known Problems Brother Melanoma Father Relation Name Status Comments Brother Alive Father Mother Social History Tobacco Use Types Packs/Day Years Used Date Smoking Tobacco: Former Cigarettes Q uit: 03/01/2022 Smokeless Tobacco: Never Tobacco Cessation:Counseling Given: Not Answered Alcohol Use Standard Drinks/Week Comments Not Currently 0 (1 standard drink = 0.6 oz pur e alcohol) sometimes, quit 05/09/25 Feeling Safe Answer Date Recorded Are you in a relationship wi th someone who hurts you emotionally and/or physically? No 05/10/2025 Comments No Sex and Gender Information Value Date Recorded Sex Assigned at Not on file Legal Sex Female 12:55 PM CDT Gender Identity Female 06/16/2024 11:23 PM CDT Sexual Orientation Not on file Last Filed Vital Signs Vital Sign Reading Time Taken Comments Blood Pressure 150/98 05/10/2025 4:41 PM CDT Pulse 94 05/09/2025 5:30 AM CDT Temperature 36.5 C (97.7 F) 05/10/2025 4:41 PM CDT Respiratory Rate 18 05/10/2025 4:41 PM CDT Oxygen Saturation 96% 05/10/2025 4:41 PM CDT Inhaled Oxygen Concentration - - Weight 95.2 kg (209 lb 12.8 oz) 05/10/2025 4:41 PM CDT Height 154.9 cm (5' 1 ) 05/10/2025 4:41 PM CDT Body Mass Index 39.64 05/10/2025 4:41 PM CDT Plan of Treatment Health Maintenance Due Date Last Done Comments HPV VACCINES (1 - 3-dose series) 2002 HEPATITIS B VACCINES (1 of 3 - 19+ 3-dose series) 2006 COVID-19 Vaccine (2 - 2023-2 5 season) 2024 05/02/2021 DTAP/TDAP/TD VACCINES (3 - T d or Tdap) 07/21/2024 07/21/2014, 07/19/2013 INFLUENZA VACCINE (#1) 2025 , 09/02/2024, 06/19/2023, Additional history exists Preventative Visit-Managed Medicaid 09/03/2025 09/02/2024, 11/28/2016, 11/29/2015, Additional history exists PAP SMEAR 09/02/2027 09/02/2024, 03/07/2014 Pre-Diabetes and Diabetes Screening 02/01/2028 01/31/2025, 10/14/2024, 01/14/2024 CERVICAL CANCER SCREENING 09/02/2029 HPV/Cotest (21-29) 09/02/2029 09/02/2024 HPV/Cotest (30-65) 09/02/2029 09/02/2024 Goals Goal Patient Goal Type Associated Problems Recent Progress Patient-Stated? Author Patient Stated waking up and getting motivated General Yes Bria Ling Note: Patient will spend time with her loved ones and remember the good times with family members that are no longer here Medical Devices Implanted Type Area Automatic Clipper And Stripper Device Identifier Shelf Expiration Date Model / Serial / Lot Clip Crtg Med/Lrg 1112 - Sna Implanted:Qty: 1 on 01/01/2023 by Diego Gilbert MD at [facility] Clip N/A: Abdomen [employer] 08/26/2027 1112 / NA / [id number] Procedures Procedure Name Priority Date/Time Associated Diagnosis Comments DIFFERENTIAL, MANUAL Stat 03/10/2025 9:27 PM CDT COMPREHENSIVE METABOLIC PANEL Stat 03/10/2025 9:27 PM CDT CBC WITH DIFFERENTIAL Stat 03/10/2025 9:27 PM CDT COVID-19 ANTIGEN Stat 03/10/2025 9:27 PM CDT BORDETELLA DETECTION Stat 03/10/2025 9:27 PM CDT INFLUENZA VIRUS A AND B, ANTIGEN DETECTION Stat 03/10/2025 9:27 PM CDT XR CHEST PA OR AP 1 VW Stat 9:11 PM CDT POC COVID-19 ANTIGEN Routine 03/09/2025 8:34 AM CDT Body aches Cough, unspecified type COMPREHENSIVE METABOLIC PANEL Routine 03/03/2025 2:55 PM CDT HEMOGLOBIN A1C Routine 01/31/2025 2:32 PM CDT Prediabetes CERV/VAG CYTO SCREEN PAP W/HPV Routine 09/02/2024 1:42 PM [employer] SALESPERSON Cervical cancer screening from Last 3 Months or Most Recently Relevant to Health Maintenance Results * (ABNORMAL) COVID-19 ANTIGEN (03/10/2025 9:27 PM CDT) COVID-19 ANTIGEN POSITIVE( A) Presumptive Negative 03/10/2025 9:52 PM CDT [facility] Upper Respiratory ANTERIOR NARES SWAB / Unknown Collection / Unknown 03/10/2025 9:27 PM CDT 03/10/2025 9:32 PM CDT Narrative [facility] - 03/10/2025 9:52 PM CDT Adeline SARS antigen test has been authorized by FDA under an emergency use authorization (EUA) and has been authorized only for the detection of proteins from SARS-CoV-2 and influenza, not for any other viruses or pathogens. Adeline SARS Antigen KIKI is intended for the simultaneous qualitative detection and differentiation of nucleocapsid protein antigen from SARS-CoV-2 directly from nasopharyngeal (BOOT AND SADDLE REPAIR PERSON) and nasal (NS) swab specimens collected from individuals who are suspected of respiratory viral infection consistent with COVID-19 by their healthcare provider within the first five (5) days of symptom onset when tested at least twice over three days with at least 48 hours between tests, or from individuals without symptoms or other epidemiological reasons to suspect COVID-19 when tested at least three times over five days with at least 48 hours between tests. This test is only authorized for the duration of the declaration that circumstances exist justifying the authorization of emergency use of in vitro diagnostics for detection and/or diagnosis of the virus that causes COVID-19 under Section 564(b)(1) of the Act, 21 U.S.C. 360bbb-3(b)(1), unless the authorization is terminated or revoked sooner. Negative results should be treated as presumptive and confirmed with a molecular assay, if necessary for patient care. Serial testing should be performed in individuals with negative results at least twice over three days (with 48 hours between tests) for symptomatic individuals or from individuals without symptoms or other epidemiological reasons to suspect COVID-19 when tested at least three times over five days with at least 48 hours between tests. Matthew Inman MD MICROBIOLOGY - [facility] L ORDERABLES Final Result [facility] CLIA # [id number] [address] [place] [address] * MANUAL DIFFERENTIAL (03/10/2025 9:27 PM CDT) PLATELET EST. Consistent w Count 03/10/2025 9:56 PM CDT [facility] RBC MORPHOLOGY Normal 03/10/2025 9:56 PM CDT [facility] Blood BLOOD SPECIMEN / Unknown Venipuncture / Unknown 03/10/2025 9:27 PM CDT 03/10/2025 9:31 PM CDT Mathtew Inman MD HEMATOLOGY ORDERABLES COM Final Result Performing Organization Address City/[facility]/ZIP Co de Phone Number [facility] CLIA # [id number] [address] [place] [address] * BORDETELLA DETECTION (03/10/2025 9:27 PM CDT) SOURCE NASOPHARYNX 03/21/2025 7:15 AM CDT [facility] BORDETELLA PERTUSSIS DNA TNP 03/21/2025 7:15 AM CDT [facility] Comment: TEST(S) NOT PERFORMED: B. PERTUSSIS DNA B. PARAPERTUSSIS DNA TEST NOT PERFORMED The specimen submitted did not meet the specimen requirements. Please refer to the [facility] Directory or call Client Services for proper requirements. Upper Respiratory ENTIRE NASOPHARYNX / Unknown Collection / Unknown 03/10/2025 9:27 PM CDT 03/10/2025 9:31 PM CDT Narrative [facility] - 03/21/2025 7:15 AM CDT Performing Organization Information: Site ID: [id number] Name: [facility] MD Address: [address] [place] [address] [place] [address] Director: Patrick Carreno M.D.,PhD Matthew Inman MD MICROBIOLOGY - GENERA L ORDERABLES Final Result [facility] [phone] * INFLUENZA VIRUS A AND B, ANTIGEN DETECTION (03/10/2025 9:27 PM CDT) Pathologist [facility] INFLUENZA A AG NOT DETECTED Not Detected 03/10/2025 9:52 PM CDT [facility] INFLUENZA B AG NOT DETECTED Not Detected 03/10/2025 9:52 PM CDT [facility] Upper Respiratory ENTIRE NASOPHARYNX / Unknown Collection / Unknown 03/10/2025 9:27 PM CDT 03/10/2025 9:32 PM CDT [facility] - 03/10/2025 9:52 PM CDT Negative results do not rule out infection. If clinically indicated, consider PCR testing which is more sensitive than antigen testing. If PCR testing is desired, consult with your local laboratory as sample recollection may be required. us Matthew Inman MD MICROBIOLOGY - [facility] L ORDERABLES Final Result [facility] CLIA # [id number] [address] [place] [address] * (ABNORMAL) CBC WITH DIFFERENTIAL (03/10/2025 9:27 PM CDT) WBC 5.5 4.0 - 10.0 K/uL 03/10/2025 9:56 PM [facility] RBC 4.40 3.93 - 5.22 M/uL 03/10/2025 9:56 PM [facility] HEMOGLOBIN 11.3 11.2 - 15.7 g/dL 03/10/2025 9:56 PM [facility] HEMATOCRIT 37.2 34.1 - 44.9 % 03/10/2025 9:56 PM [facility] MCV 84.5 79.4 - 94.8 fL 03/10/2025 9:56 PM [facility] MCH 25.7 25.6 - 32.2 pg 03/10/2025 9:56 PM [facility] MCHC 30.4(L) 32.2 - 35.5 g/dL 03/10/2025 9:56 PM [facility] RDW 17.2(H) 11.0 - 14.5 % 03/10/2025 9:56 PM [facility] RDW-STDEV 52.9 36.9 - 56.9 fL 03/10/2025 9:56 PM [facility] PLATELETS 200 163 - 337 K/uL 03/10/2025 9:56 PM [facility] MPV 9.4(L) 10.0 - 14.8 fL 03/10/2025 9:56 PM [facility] NEUTROPHILS 81(H) 34 - 71 % 03/10/2025 9:56 PM [facility] LYMPHOCYTES 10(L) 19 - 52 % 03/10/2025 9:56 PM [facility] MONOCYTES 7 5 - 13 % 03/10/2025 9:56 PM [facility] EOSINOPHILS 0(L) 1 - 6 % 03/10/2025 9:56 PM [facility] BASOPHILS 0 0 - 1 % 03/10/2025 9:56 PM [facility] IMMATURE GRANULOCYTES 2 % 03/10/2025 9:56 PM [facility] NEUTROPHIL ABSOLUTE 4.44 1.56 - 6.13 K/uL 03/10/2025 9:56 PM [facility] LYMPHOCYTE ABSOLUTE 0.56(L) 1.20 - 3.40 K/uL 03/10/2025 9:56 PM [facility] MONOCYTE ABSOLUTE 0.36 0.24 - 0.36 K/uL 03/10/2025 9:56 PM [facility] EOSINOPHIL ABSOLUTE 0.01(L) 0.04 - 0.36 K/uL 03/10/2025 9:56 PM [facility] BASOPHILS ABSOLUTE 0.02 0.01 - 0.08 K/uL 03/10/2025 9:56 PM [facility] IMMATURE GRANULOCYTES ABSOLUTE 0.12 K/uL 03/10/2025 9:56 PM [facility] Blood BLOOD SPECIMEN / Unknown Venipuncture / Unknown 03/10/2025 9:27 PM CDT 03/10/2025 9:31 PM CDT us Matthew Inman MD HEMATOLOGY ORDERABLES Final Result [facility] CLIA # [id number] [address] [place] [address] * (ABNORMAL) COMPREHENSIVE METABOLIC PANEL (03/10/2025 9:27 PM [facility]) Only the most recent of2 resultswithin the time period is included. SODIUM 138 136 - 145 mmol/L 03/10/2025 10:01 PM [facility] POTASSIUM 3.2(L) 3.5 - 5.1 mmol/L 03/10/2025 10:01 PM [facility] CHLORIDE 103 98 - 107 mmol/L 03/10/2025 10:01 PM [facility] CO2 23 22 - 29 mmol/L 03/10/2025 10:01 PM [facility] CALCIUM 9.1 8.6 - 10.0 mg/dL 03/10/2025 10:01 PM [facility] BUN 9 6 - 20 mg/dL 03/10/2025 10:01 PM [facility] CREATININE 0.82 0.51 - 0.95 mg/dL 03/10/2025 10:01 PM [facility] GLUCOSE 136(H) 74 - 99 mg/dL 03/10/2025 10:01 PM [facility] TOTAL PROTEIN 6.6 6.6 - 8.7 g/dL 03/10/2025 10:01 PM [facility] ALBUMIN 3.7 3.5 - 5.2 g/dL 03/10/2025 10:01 PM [facility] BILIRUBIN TOTAL 0.5 0.0 - 1.2 mg/dL 03/10/2025 10:01 PM [facility] ALKALINE PHOSPHATASE 53 35 - 104 U/L 03/10/2025 10:01 PM [facility] AST 98(H) 0 - 35 U/L 03/10/2025 10:01 PM [facility] ALT 182(H) 0 - 35 U/L 03/10/2025 10:01 PM [facility] GFR >60 >=60 mL/min/1.7 3 sq meter 03/10/2025 10:01 PM CDT [facility] Comment:eGFR calculated with 2020 CKD-EPI equation. Vegetarian diet, extremely high or low muscle mass, and may affect results. Cystatin C with Glomerular Filtration Rate is a suitable alternative for these patients. ANION GAP 12 5 - 20 mmol/L 03/10/2025 10:01 PM CDT [facility] Blood BLOOD SPECIMEN / Unknown Venipuncture / Unknown 03/10/2025 9:27 PM CDT 03/10/2025 9:31 PM CDT us Matthew Inman MD CHEMISTRY ORDERABLES Final Result [facility] CLIA # [id number] [address] [place] [address] * XR CHEST PA OR AP 1 VW (03/10/2025 9:11 PM CDT) Anatomical Region Laterality Modality Chest Computed Radiogr aphy 03/10/2025 9:11 PM CDT Impressions 03/10/2025 9:40 PM CDT IMPRESSION: Please see below. Exam: XR CHEST PA OR AP 1 VW Date/Time of Exam: 03/10/2025 9:11 PM REASON FOR EXAM: Congestion. DIAGNOSIS: Mild intermittent asthma without complication. Findings: The lungs are clear. No pneumothorax or pleural effusion. The cardiac mediastinal silhouette is stable in appearance compared to 09/13/2024. The osseous thorax is intact. IMPRESSION: No acute pulmonary process or significant interval change. Narrative Procedure Note Oseas Sanders MD - 03/10/2025 IMPRESSION: Please see below. Exam: XR CHEST PA OR AP 1 VW Date/Time of Exam: 03/10/2025 9:11 PM REASON FOR EXAM: Congestion. DIAGNOSIS: Mild intermittent asthma without complication. Findings: The lungs are clear. No pneumothorax or pleural effusion. The cardiac mediastinal silhouette is stable in appearance compared to 09/13/2024. The osseous thorax is intact. IMPRESSION: No acute pulmonary process or significant interval change. Matthew Inman MD DIAGNOSTIC IMAGING OR DERABLES Final Result * POC COVID-19 ANTIGEN (03/09/2025 8:34 AM CDT) COVID-19 ANTIGEN POC Presumptively Negative Presumptively Negative [facility] INTERNAL KIT QC POC Pass Pass [facility] KIT LOT NUMBER POC [id number] [facility] KIT EXP DATE POC 07/11/2025 [facility] READ METHOD POC Instrument [facility] Upper Respiratory 03/09/2025 8:34 AM CDT Anyashlomo Esquivel Domenico MANAGER HUMAN RESOURCES POINT OF CARE TESTING Final Result [facility] CLIA# [id number] [address] [facility] [address] [place] [address] * (ABNORMAL) HEMOGLOBIN A1C (01/31/2025 2:32 PM CDT) Pathologist [facility] HEMOGLOBIN A1C 6.1(H) <5.7 % [facility] Comment: For someone without known diabetes, a hemoglobin A1c value between 5.7% and 6.4% is consistent with prediabetes and should be confirmed with a follow-up test. For someone with known diabetes, a value <7% indicates that their diabetes is well controlled. A1c targets should be individualized based on duration of diabetes, age, comorbid conditions, and other considerations. This assay result is consistent with an increased risk of diabetes. Currently, no consensus exists regarding use of hemoglobin A1c for diagnosis of diabetes for children. ESTIMATED AVERAGE GLUCOSE (MG/DL) 128 mg/dL [facility] ESTIMATED AVERAGE GLUCOSE (MMOL/L) 7.1 mmol/L [facility] Comment: Test Performed at: [facility] [address] [place] [address] Kizzy King MD Blood 01/31/2025 2:32 PM CDT 02/01/2025 3:14 AM CDT Anya Esquivel Domenico MANAGER HUMAN RESOURCES CHEMISTRY ORDERABLES Final Result [facility] [phone] [facility] [address] [address] * CERV/VAG CYTO SCREEN PAP W/HPV (09/02/2024 1:42 PM [employer] SALESPERSON) CLINICAL INFORMATION [facility] Comment:None given LAST MENSTRUAL PERIOD [facility] Comment:08/28/2024 PREV PAP: [facility] Comment:NONE GIVEN PREV BX: [facility] Comment:NONE GIVEN SOURCE [facility] Comment:Endocervix ADEQUACY: [facility] Comment: Satisfactory for evaluation. Endocervical/transformation zone component present. PAP INTERP [facility] Comment: Cytology Results: Negative for intraepithelial lesion or malignancy. COMMENT (PAP TEST) Q [facility]est [facility] Comment: This Pap test has been evaluated with computer assisted technology. WEB MERCHANDISER: Micheline jarrett [facility] Comment: KEVIN CLEANING(ASCP) CT Screening location: [place] [address] EXPLANATORY NOTE Que [facility] Comment: EXPLANATORY NOTE: The Pap is a screening test for cervical cancer. It is not a diagnostic test and is subject to false negative and false positive results. It is most reliable when a satisfactory sample, regularly obtained, is submitted with relevant clinical findings and history, and when the Pap result is evaluated along with historic and current clinical information. HPV E6/E7 Not Detected Not Detected [facility] Comment: Methodology: Aviation Engineer-Mediated Amplification This assay detects E6/E7 viral messenger RNA (mRNA) from 14 high-risk HPV types (16,18,31,33,35,39,45,51,52,56,58,59,66,68). Cervical sources are required for HPV testing. If a vaginal source from a patient who has had a total hysterectomy with removal of cervix was submitted, please contact the testing laboratory for alternative testing options. For additional information, please refer to http://education.[employer]/faq/GCJ619s1 (This link if provided for information/ educational purposes only.) Test Performed at: [facility] [address] [place] [address] Cricket Faye Genital SWAB OF ENDOCERVIX / Unknown 09/02/2024 1:42 PM [employer] SALESPERSON 09/04/2024 1:04 AM [employer] SALESPERSON Jessica Lizarragasabrina Cunha MANAGER HUMAN RESOURCES PATHOLOGY/CYTOLOGY ORDER RICHELLE Final Result [facility] [phone] [facility] [address] [place] [address] from Last 3 Months or Most Recently Relevant to Health Maintenance Insurance [facility] MEDICAID RX INFOCROSSING Medicaid Advance Directives For more information, please contact: [phone] * Full Code (Latest Code Status on File) Date Activated Date Inactivated Comments 01/01/2023 12:26 PM 01/01/2023 5:57 PM * Full Code Date Activated Date Inactivated Comments 12/24/2022 9:14 PM 12/27/2022 6:29 PM Care Teams Colorman Relationship Specialty Start Date End Date Donlado Nicholson MD [address] [id number] PCP - General Family Practice 05/30/21
--- OUTSIDE RECORDS SUMMARY | 2025-05-24 | XMS_ITS | Encounter Summary ---
Author Organization [employer] Address [address] [place] [address] Care Team Providers Care Last Puller Name Role Phone Donaldo Nicholson MD Primary Care Provider [phone] Encounter Details Date Type Department Care Team (Late st Contact Info) Description 10/14/2024 Lab Requisition [facility] Laboratory Services [place] [address] [place] [address] Mary Olmos FNP [address] [place] [phone] Hemorrhage of anus and rectum Social History Tobacco Use Types Packs/Day Years [...] longer here documented as of this encounter Procedures Procedure Name Priority Date/Time Associated Diagnosis Comments COMPREHENSIVE METABOLIC PANEL Stat 10/14/2024 3:55 PM ELECTRICAL SERVICE TECHNICIAN Hemorrhage of anus and rectum documented in this encounter Results * (ABNORMAL) COMPREHENSIVE METABOLIC PANEL (10/14/2024 3:55 PM ELECTRICAL SERVICE TECHNICIAN) SODIUM 138 136 - 145 mmol/L 10/14/2024 4:28 PM [facility] POTASSIUM 3.9 3.5 - 5.1 mmol/L 10/14/2024 4:28 PM [facility] CHLORIDE 100 98 - 107 mmol/L 10/14/2024 4:28 PM [facility] CO2 29 22 - 29 mmol/L 10/14/2024 4:28 PM [facility] CALCIUM 8.9 8.6 - 10.0 mg/dL 10/14/2024 4:28 PM [facility] BUN 12 6 - 20 mg/dL 10/14/2024 4:28 PM [facility] CREATININE 0.72 0.51 - 0.95 mg/dL 10/14/2024 4:28 PM [facility] GLUCOSE 110(H) 74 - 99 mg/dL 10/14/2024 4:28 PM [facility] TOTAL PROTEIN 7.2 6.6 - 8.7 g/dL 10/14/2024 4:28 PM [facility] ALBUMIN 3.9 3.5 - 5.2 g/dL 10/14/2024 4:28 PM [facility] BILIRUBIN TOTAL 1.2 <=1.2 mg/dL 10/14/2024 4:28 PM [facility] ALKALINE PHOSPHATASE 69 35 - 104 U/L 10/14/2024 4:28 PM [facility] AST 96(H) 10 - 35 U/L 10/14/2024 4:28 PM [facility] ALT 101(H) 10 - 35 U/L 10/14/2024 4:28 PM [facility] GFR >60 >=60 mL/min/1.7 3 sq meter 10/14/2024 4:28 PM ELECTRICAL SERVICE TECHNICIAN [facility] Comment:eGFR calculated with 2020 CKD-EPI equation. Vegetarian diet, extremely high or low muscle mass, and may affect results. Cystatin C with Glomerular Filtration Rate is a suitable alternative for these patients. ANION GAP 9(L) 12 - 20 mmol/L 10/14/2024 4:28 PM ELECTRICAL SERVICE TECHNICIAN [facility] Blood BLOOD SPECIMEN / Unknown Collection / Unknown 10/14/2024 3:55 PM ELECTRICAL SERVICE TECHNICIAN 10/14/2024 4:10 PM ELECTRICAL SERVICE TECHNICIAN us Mary Olmos STUDY ABROAD ADVISOR CHEMISTRY ORDERABLES Final Resul t [facility] CLIA # [id number] [address] [address] documented in this encounter Visit Diagnoses Diagnosis Hemorrhage of anus and rectum Hemorrhage of rectum and anus documented in this encounter Additional Health Concerns Infection Onset Date Last Indicated Resolved Time R/O COVID-19 03/10/2025 03/10/2025 03/10/2025 9:52 PM CDT R/O Pertussis (Bordetella) 03/10/2025 03/10/2025 0 03/17/2025 1:16 AM CDT COVID-19 03/10/2025 03/10/2025 03/30/2025 1:16 AM CDT Assessment Noted Time PHQ-9 Depression Total Score: 6 10/14/19 25 8:35 AM ELECTRICAL SERVICE TECHNICIAN documented as of this encounter Care Teams Last Puller Relationship Specialty Start Date End Date Donaldo Nicholson MD [address] [phone] PCP - General Family Practice 05/30/21 documented as of this encounter
--- OUTSIDE RECORDS SUMMARY | 2025-05-24 | XMS_ITS | Encounter Summary ---
Author Organization [facility] Address [address] [place] [address] Care Team Providers Care Trail Maintenance Worker Name Role Phone Donaldo Nicholson MD Primary Care Provider [phone] Encounter Details Date Type Department Care Team (Late st Contact Info) Description 06/19/2023 Lab Requisition [facility] Laboratory Services [place] [address] [address] GuerlineJessica flores, SPINDLE PLUMBER [address] [phone] Hematemesis Social History Tobacco Use Types Packs/Day Years [...] Procedure Name Priority Date/Time Associated Diagnosis Comments CBC WITH DIFFERENTIAL Routine 06/19/2023 10:04 AM CDT Hematemesis COMPREHENSIVE METABOLIC PANEL Routine 06/19/2023 10:04 AM CDT Hematemesis documented in this encounter Results * (ABNORMAL) COMPREHENSIVE METABOLIC PANEL (06/19/2023 10:04 AM CDT) SODIUM 136 136 - 145 mmol/L 06/19/2023 10:31 AM [facility] POTASSIUM 5.2(H) 3.5 - 5.1 mmol/L 06/19/2023 10:31 AM [facility] CHLORIDE 101 98 - 107 mmol/L 06/19/2023 10:31 AM [facility] CO2 26 22 - 29 mmol/L 06/19/2023 10:31 AM [facility] CALCIUM 9.2 8.6 - 10.0 mg/dL 06/19/2023 10:31 AM [facility] BUN 15 6 - 20 mg/dL 06/19/2023 10:31 AM [facility] CREATININE 0.85 0.51 - 0.95 mg/dL 06/19/2023 10:31 AM [facility] GLUCOSE 104(H) 74 - 99 mg/dL 06/19/2023 10:31 AM [facility] TOTAL PROTEIN 7.5 6.6 - 8.7 g/dL 06/19/2023 10:31 AM [facility] ALBUMIN 4.0 3.5 - 5.2 g/dL 06/19/2023 10:31 AM [facility] BILIRUBIN TOTAL 0.5 <=1.2 mg/dL 06/19/2023 10:31 AM [facility] ALKALINE PHOSPHATASE 75 35 - 104 U/L 06/19/2023 10:31 AM [facility] AST 103(H) 10 - 35 U/L 06/19/2023 10:31 AM [facility] ALT 92(H) 10 - 35 U/L 06/19/2023 10:31 AM [facility] GFR >60 >=60 mL/min/1.7 3 sq meter 06/19/2023 10:31 AM [facility] Comment:eGFR calculated with 2020 CKD-EPI equation. Vegetarian diet, extremely high or low muscle mass, and may affect results. Cystatin C with Glomerular Filtration Rate is a suitable alternative for these patients. ANION GAP 9(L) 12 - 20 mmol/L 06/19/2023 10:31 AM [facility] Blood Collection / Unknown 06/19/2023 10:04 AM CDT 06/19/2023 10:05 AM CDT us Jessica Cunha SPINDLE PLUMBER CHEMISTRY ORDERABLES Fin al [id number] [address] [place] [address] * (ABNORMAL) CBC WITH DIFFERENTIAL (06/19/2023 10:04 AM CDT) WBC 8.1 4.0 - 10.0 K/uL 06/19/2023 10:16 AM [facility] RBC 4.77 3.93 - 5.22 M/uL 06/19/2023 10:16 AM [facility] HEMOGLOBIN 11.9 11.2 - 15.7 g/dL 06/19/2023 10:16 AM [facility] HEMATOCRIT 38.2 34.1 - 44.9 % 06/19/2023 10:16 AM [facility] MCV 80.1 79.4 - 94.8 fL 06/19/2023 10:16 AM [facility] MCH 24.9(L) 25.6 - 32.2 pg 06/19/2023 10:16 AM [facility] MCHC 31.2(L) 32.2 - 35.5 g/dL 06/19/2023 10:16 AM [facility] RDW 14.4 11.0 - 14.5 % 06/19/2023 10:16 AM [facility] RDW-STDEV 41.4 36.9 - 56.9 fL 06/19/2023 10:16 AM [facility] PLATELETS 241 163 - 337 K/uL 06/19/2023 10:16 AM [facility] MPV 9.7(L) 10.0 - 14.8 fL 06/19/2023 10:16 AM [facility] NEUTROPHILS 62 34 - 71 % 06/19/2023 10:16 AM [facility] LYMPHOCYTES 27 19 - 52 % 06/19/2023 10:16 AM [facility] MONOCYTES 9 5 - 13 % 06/19/2023 10:16 AM [facility] EOSINOPHILS 1 1 - 6 % 06/19/2023 10:16 AM [facility] BASOPHILS 1 0 - 1 % 06/19/2023 10:16 AM [facility] IMMATURE GRANULOCYTES 1 % 06/19/2023 10:16 AM [facility] NEUTROPHIL ABSOLUTE 4.98 1.56 - 6.13 K/uL 06/19/2023 10:16 AM [facility] LYMPHOCYTE ABSOLUTE 2.19 1.20 - 3.40 K/uL 06/19/2023 10:16 AM [facility] MONOCYTE ABSOLUTE 0.70(H) 0.24 - 0.36 K/uL 06/19/2023 10:16 AM [facility] EOSINOPHIL ABSOLUTE 0.07 0.04 - 0.36 K/uL 06/19/2023 10:16 AM [facility] BASOPHILS ABSOLUTE 0.05 0.01 - 0.08 K/uL 06/19/2023 10:16 AM [facility] IMMATURE GRANULOCYTES ABSOLUTE 0.06 K/uL 06/19/2023 10:16 AM [facility] Blood Venipuncture / Unknown 06/19/2023 10:04 AM CDT 06/19/2023 10:05 AM CDT us Jessica Dupree Guerline SPINDLE PLUMBER HEMATOLOGY ORDERABLES Fi nal Result [facility] # [id number] [address] [address] documented in this encounter Visit Diagnoses Diagnosis Hematemesis documented in this encounter Additional Health Concerns Infection Onset Date Last Indicated Resolved Time R/O COVID-19 03/10/2025 03/10/2025 03/10/2025 9:52 PM CDT R/O Pertussis (Bordetella) 03/10/2025 03/10/2025 0 03/17/2025 1:16 AM CDT COVID-19 03/10/2025 03/10/2025 03/30/2025 1:16 AM CDT Assessment Noted Time PHQ-9 Depression Total Score: 4 07/12/20 22 11:37 AM CDT documented as of this encounter Care Teams Trail Maintenance Worker Relationship Specialty Start Date End Date Donaldo Nicholson MD [address] [phone] PCP - General Family Practice 05/30/21 documented as of this encounter
--- NOTE | 2025-05-24 00:01 | CTR_ITS ---
PROCEDURE INFORMATION: Exam: CT Maxillofacial With Contrast; Mandible Exam date and time: 05/24/2025 12:34 AM Age: 40 years old Clinical indication: Other: Swelling/drainage; Swelling and redness with purulent drainage to anterior mandible. ; Additional info: Chin cellulitis, possible abscess, less likely clayton's angina TECHNIQUE: Imaging protocol: Computed tomography maxillofacial with intravenous contrast. Exam focused on the mandible. Radiation optimization: All CT scans at this facility use at least one of these dose optimization techniques: automated exposure control; mA and/or kV adjustment per patient size (includes targeted exams where dose is matched to clinical indication); or iterative reconstruction. Contrast material: OMNI 350; Contrast volume: 100 ml; Contrast route: INTRAVENOUS (IV); COMPARISON: No relevant prior studies available. RADIATION DOSE METRICS: Total DLP (mGy-cm): 623.34 FINDINGS: Bones: Mandible is unremarkable. No acute fracture. Lymph nodes: Multiple tiny nodes in the submandibular and submental region particularly in the left, with associated subcutaneous stranding and edema in the tissues anterior to the maxilla and mandible, without definite odontogenic abscess. Multiple caries bilaterally may represent a possible source. Findings concerning for cellulitis with other etiologies not excluded. Soft tissues: See Lymph nodes finding. CT/CT facial bones w con [id number] IMPRESSION: Multiple tiny nodes in the submandibular and submental region particularly in the left, with associated subcutaneous stranding and edema in the tissues anterior to the maxilla and mandible, without definite odontogenic abscess. Multiple caries bilaterally may represent a possible source. Findings concerning for cellulitis with other etiologies not excluded.
[2025-05-24 00:18] LABS: Hematocrit 34.1 % (36-47); Hemoglobin 10.40 g/dL (11.27-16.99); Mean Corpuscular HGB Conc 30.5 g/dL (30-55); Mean Corpuscular Hemoglobin 24.8 pg (27-33); Mean Corpuscular Volume 81.2 fl (85-98); Nucleated Red Blood Cells % 0 %; Platelet Count 244 10^3/cmm (157-399); Red Blood Count 4.20 10^6/uL (3.85-5.65); White Blood Count 5.01 10^3/uL (3.29-11.43)
[2025-05-24 00:33] LABS: Lactic Sepsis W/Reflex 2.7 mmol/L (0.5-2.2)
[2025-05-24 00:34] LABS: Alanine Aminotransferase 74 U/L (0-33); Albumin Level 3.9 g/dL (3.5-5.2); Alkaline Phosphatase 72 U/L (35-105); Anion Gap 18.5 (5-19); Aspartate Amino Transferase 100 U/L (0-32); Blood Urea Nitrogen 5 mg/dL (6-20); Calcium 8.5 mg/dL (8.5-10.5); Carbon Dioxide 23 mmol/L (22-29); Chloride 101 mmol/L (98-107); Creatinine Clr Calc Pharmacy 156.4627; Globulin 3.5 g/dL (1.3-4.6); Glucose 86 mg/dL (65-115); Osmolality Calculated 285 mOsm/kg (285-295); Potassium 3.5 mmol/L (3.5-5.1); Sodium 139 mmol/L (136-145); Total Protein 7.4 g/dL (6.6-8.7)
[2025-05-24] MEDS: iohexol 350 mg/mL 500 mL Btl (per mL) IV (00:36)
--- NOTE | 2025-05-24 01:57 | ED_ITS ---
HPI - Skin/Abscess/Foreign Bdy 2 General: Chief complaint: Skin/Abscess/Foreign Body Stated complaint: Facial swelling Time Seen by Provider: 05/23/25 23:58 History of Present Illness: 40-year-old female with prior MRSA absce ss of the hip (required I&D and ICU stay) completed a 10-day course of clindamycin yesterday for MRSA cellulitis of the chin. Today she notes markedly increased swelling, erythema, and serous drainage over the anterior chin extending from the lower lip to approximately 3 cm below the chin apex. Reports pressure in the area and pain 03/08. Denies fever, chills, dysphagia, odynophagia, voice change, chest pain, shortness of breath, nausea, or vomiting. Concerned about underlying dental disease contributing to infection. Arrived by EMS for worsening symptoms. Related Data Home Medications ?Medication ?Instructions ?Recorded ?Confirmed albuterol sulfate 90 mcg/actuation 2 inh inhalation Q6 H PRN Shortness 08/02/21 03/10/24 breath activated powder inhaler Of Breath fluoxetine 20 mg capsule (Prozac) 20 mg PO DAILY 08/0203/10/24 lisinopril 10 mg tablet 10 mg PO DAILY 08/04/2302/27 Allergies Allergy/AdvReac Type Severity Reaction Status Date / Time escitalopram (From Lexapro) Allergy Severe Unknown Verified 03/10/24 15:27 cefuroxime (From Ceftin) Allergy Intermediate Hives. Verified 03/10/24 15:27 [facility] ED 2 PFSH: Surgical History History of sleeve gastrectomy Hx laparoscopic cholecystectomy Hx of section History of tonsillectomy and adenoidectomy Social History Smoking and tobacco/nicotine status: former use of tobacco/nicotine Quit status (tobacco/nicotine): has tried quititng Number of times tried to quit tobacco: 4 Second hand smoke exposure: No Current occupation: [place] [employer] Physical Exam 2 Narrative: EXAM NARRATIVE: HEENT: Poor dentition, partial lower denture. No submental firmness or tenderness; airway patent; speech unimpaired. Skin: Erythema, swelling, and mild serous drainage involving lower lip and anterior chin to 3 cm caudad; consistent with cellulitis with possible early abscess. No fluctuance noted elsewhere. Const: COMMON NORMALS: no acute distress, patient oriented x3 and alert Eye: COMMON NORMALS: Equal, round and reactive pupils present, EOMs intact bilaterally and no scleral icterus PUPIL: Yes Equal, round and reactive pupils present Resp: COMMON NORMALS: normal respiratory effort and No retractions Cardio: COMMON NORMALS: regular rate, regular rhythm and No murmurs present (Cardio) RATE: regular rate RHYTHM: regular rhythm GI: COMMON NORMALS: Normal to inspection, nondistended, normoactive bowel sounds present, Soft to palpation and non-tender PALPATION: Yes Soft to palpation Neuro: COMMON NORMALS: patient oriented x3 SENSORIUM/ORIENTATION: Yes alert Course 2 Vital Signs: Vital signs: Vital Signs Temperature 98.4 F 05/23/25 23:47 Pulse Rate 84 05/24/25 01:18 Respiratory Rate 16 05/24/25 01:18 Blood Pressure 166/102 05/24/25 01:18 Pulse Oximetry 97 05/24/25 01:18 Oxygen Delivery Me thod Room Air 05/24/25 01:18 MDM - Skin/Abscess/Foreign Bdy Medicial Decision Making Patient with recurrent MRSA now presents with failed outpatient clindamycin therapy and worsening chin cellulitis with drainage but no airway compromise. Physical exam significant for extensive chin erythema/swelling without submental induration and otherwise normal exam. Diagnostic reasoning: MRSA cellulitis with concern for early abscess versus progressing soft-tissue infection; low likelihood of Eddie?s angina given absence of submental firmness, dysphagia, or voice change. CT scan appears to confirm diagnosis of cellulitis without old oncologic process or abscess amenable to immediate incision and drainage. Given her failed outpatient oral 10-day therapy with clindamycin, she will be admitted for IV antibiotics. I suspect that over the next few days she may have formed an abscess which would benefit from incision and drainage. She is agreeable to the plan Lab Data 05/24/25 00:05 05/24/25 00:[address] 05/24/25 00:01 IMPRESSION: Multiple tiny nodes in the submandibular and submental region particularly in the left, with associated subcutaneous stranding and edema in the tissues anterior to the maxilla and mandible, without definite odontogenic abscess. Multiple caries bilaterally may represent a possible source. Findings concerning for cellulitis with other etiologies not excluded. Laboratory Results WBC 5.01 10^3/uL (3.29-11.43) 05/24/25 00:05 RBC 4.20 10^6/uL (3.85-5.65) 05/24/25 00:05 Hgb 10.40 g/dL (11.27-16.99) L 05/24/25 00:05 Hct 34.1 % (36-47) L 05/24/25 00:05 MCV 81.2 fl (85-98) L 05/24/25 00:05 MCH 24.8 pg (27-33) L 05/24/25 00:05 MCHC 30.5 g/dL (30-55) 05/24/25 00:05 RDW 15.8 % (12.1-15.1) H 05/24/25 00:05 Plt Count 244 10^3/cmm (157-399) 05/24/25 00:05 MPV 8.7 fL (7.4-10.4) 05/24/25 00:05 Neut % (Auto) 58.5 % 05/24/25 00:05 Lymph % (Auto) 27.5 % 05/24/25 00:05 [place] % (Auto) 9.4 % 05/24/25 00:05 Eos % (Auto) 2.8 % 05/24/25 00:05 Baso % (Auto) 0.8 % 05/24/25 00:05 Neut # (Auto) 2.93 10^3/uL (1.8-7.7) 05/24/25 00:05 Lymph # (Auto) 1.4 10^3/uL (0.8-4.8) 05/24/25 00:05 [place] # (Auto) 0.5 10^3/uL (0.2-0.9) 05/24/25 00:05 Eos # (Auto) 0.1 10^3/uL (0.0-0.8) 05/24/25 00:05 Baso # (Auto) 0.0 10^3/uL (0.0-0.1) 05/24/25 00:05 Nucleated RBC % (auto) 0 % 05/24/25 00:05 Nucleated RBCs # 0.0 /100WBC 05/24/25 00:05 Sodium 139 mmol/L (136-145) 05/24/25 00:05 Potassium 3.5 mmol/L (3.5-5.1) 05/24/25 00:05 Chloride 101 mmol/L (98-107) 05/24/25 00:05 Carbon Dioxide 23 mmol/L (22-29) 05/24/25 00:05 Anion Gap 18.5 (5-19) 05/24/25 00:05 BUN 5 mg/dL (6-20) L 05/24/25 00:05 Creatinine 0.5 mg/dL (0.5-0.9) 05/24/25 00:05 GFR Calculation 138.1 mL/min (90-130) H 05/24/25 00:05 Glucose 86 mg/dL (65-115) 05/24/25 00:05 Calculated Osmolality 285 mOsm/kg (285-295) 05/24/25 00:05 Lactic Acid 2.7 mmol/L (0.5-2.2) H 05/24/25 00:05 Calcium 8.5 mg/dL (8.5-10.5) 05/24/25 00:05 Total Bilirubin 1.3 mg/dL (0.15-1.2) H 05/24/25 00:05 AST 100 U/L (0-32) H 05/24/25 00:05 ALT 74 U/L (0-33) H 05/24/25 00:05 Alkaline Phosphatase 72 U/L (35-105) 05/24/25 00:05 Total Protein 7.4 g/dL (6.6-8.7) 05/24/25 00:05 Albumin 3.9 g/dL (3.5-5.2) 05/24/25 00:05 Globulin 3.5 g/dL (1.3-4.6) 05/24/25 00:05 All radiology interpretation(s) finalized by discharge Discharge Plan Discharge Patient Disposition: Admitted As Inpatient Clinical Impression: Cellulitis of face Condition: Stable Coding Level of Care Code ED [employer] Operator for Sanaz Teixeira
[2025-05-24 01:59] LABS: Reflex Lactate Order REFLEX LACTIC ORDERD
--- NOTE | 2025-05-24 03:06 | P.HP_ITS ---
Providers/Chief Complaint 2 Admitting Physician: Jamaica Diallo MD--patient seen and evaluated after 12 midnight Primary Care Provider: Donaldo Nicholson Chief Complaint: Facial swelling History of Present Illness Estela Kolb is a 40 year old female with medical history significant for skin infection and abscesses and poor dentition, patient had cystic acne of the chin that had not become infected followed by left lower molar tooth infection with much pain. Patient was being treated for the chin cystic acne infection with clindamycin for 10 days and failed outpatient therapy with cystic acne worsening and left lower molar tooth infection worsening with swelling, patient decided to come to the emergency room for further evaluation and care This patient had had history of MRSA skin infection in the past. Maxillofacial CT was done and the area no discrete abscess and since patient had had clindamycin this long with no noted abscess bed much cellulitis and stranding of the subcutaneous tissue of the area, this is most likely cellulitis but severe. Patient had received a loading dose of vancomycin of 1500 IV here in the emergency room I have at this time consulted pharmacy to dose and manage vancomycin therapy. Pharmacy to keep trough between 15 and 20 patient will have this monotherapy for care and must be noted that patient does not have any leukocytosis though had slight elevation in lactate of 2.7 repeat had been ordered. Review of Systems 2 Narrative: System review upon 10 organ system review we are significant for oral infection for the left lower molar tooth and infected cystic acne of the chin otherwise system review were unremarkable. Medications/Allergies Home Medications ?Medication ?Instructions ?Recorded ?Confirmed ?Last Taken ?Type albuterol sulfate 90 mcg/actuation 2 inh inhalation Q6 H PRN Shortness 08/02/21 03/10/24 4 Months Ago History breath activated powder inhaler Of Breath ~04/05/23 fluoxetine 20 mg capsule (Prozac) 20 mg PO DAILY 08/0203/10/24 08/03/23 History lisinopril 10 mg tablet 10 mg PO DAILY 08/04/2302/2708/03/23 History Allergies Allergy/AdvReac Type Severity Reaction Status Date / Time escitalopram (From Lexapro) Allergy Severe Unknown Verified 03/10/24 15:27 cefuroxime (From Ceftin) Allergy Intermediate Hives. Verified 03/10/24 15:27 PFSH Acute 2 PFSH: Surgical History History of sleeve gastrectomy Hx laparoscopic cholecystectomy Hx of section History of tonsillectomy and adenoidectomy Social History Smoking and tobacco/nicotine status: former use of tobacco/nicotine Quit status (tobacco/nicotine): has tried quititng Number of times tried to quit tobacco: 4 Second hand smoke exposure: No Current occupation: [place] [employer] Vitals/I&O/Wt Last Vital Signs Temp 98.4 F 05/23/25 23:47 Pulse 83 05/24/25 02:18 Resp 16 05/24/25 02:18 BP 156/100 05/24/25 02:18 Pulse Ox 96 05/24/25 02:18 O2 Del Method Room Air 05/24/25 02:40 05/23/25 05/23/25 05/24/25 14:59 22:59 06:59 Intake Total 300 / 300 Balance 300 / 300 Weight last 48 hrs Weight 90.718 kg Physical Exam 2 Narrative: Generally, patient is pretty much alert awake oriented with no change in mental status bed complaining of pain in the area of infection the chin and the inner lower molar tooth HEENT normocephalic atraumatic positive sick stick acne chin infection, oral Infection of the lower molar tooth Neck neck is supple Cardiovascular heart rate is regular Lungs clear Abdomen soft nontender nondistended unremarkable Extremities intact no edema has good pulses Neurology has no focality Lab studies were significant for anemia with hemoglobin of 10.40 otherwise essentially unremarkable except for lactate of 2.7 Data 05/24/25 00:05 05/24/25 00:05 Micro: Microbiology 05/24/25 00:17 Blood Culture - Preliminary Blood SPECIMEN COLLECTED 05/24/25 00:05 Blood Culture - Preliminary Blood SPECIMEN COLLECTED A&P Assessment and plan 1. Cellulitis of face: 2. GERD (gastroesophageal reflux disease): 3. Major depressive disorder, recurrent severe without psychotic features: 4. Generalized anxiety disorder: 5. Post-traumatic stress disorder, chronic: 6. Poorly controlled blood pressure: 7. Facial pain, acute: Plan: #1 Severe facial cellulitis maxilla facial CT negative for abscess - Admit to general medical floor - Patient had received 1500 mg of IV vancomycin in the ED as loading dose - Pharmacy has been consulted to dose vancomycin and to keep trough between 15 and 20 - Notes patient failed outpatient 10 days clindamycin that completed just yesterday and patient instantly swelled up with severe pain soon after - Gentle hydration ordered - Pain management initiated with anti-inflammatory component of Toradol with combination of IV morphine #2 Uncontrolled blood pressure - This may have been exacerbated because of pain for patient claimed the blood pressure was controlled at home with 10 mg of lisinopril - Patient blood pressure is in the 180s systolic at this time from the ED to the medical floor - Will give one-time dose vasodilator orally of 50 mg of hydralazine x 1 will monitor and optimize - Must continue to optimize pain management and blood pressure #3 Painful facial cellulitis and cystic acne of the chin infection - Continue pain management with Toradol and morphine #4 History of GERD/major depression without psychosis/PTSD - Continue patient home medication for chronic medical condition as mentioned #5 GI and DVT prophylaxis in place PDMP PDMP Reviewed: Last Reviewed 05/24/25 03:28 by Jamaica Diallo MD Attestations 2 Medical Necessity Statement*: Patient with severe cystic acne infection of the chin and left lower molar tooth infection failing outpatient antibiotics deserves inpatient admission for IV antibiotics for at least 2 midnights Coding Level of Care Code 76908 Diagnoses Cellulitis of face L03.211 GERD (gastroesophageal reflux disease) K21.9 Major depressive disorder, recurrent severe without psychotic features F33.2 Generalized anxiety disorder F41.1 Post-traumatic stress disorder, chronic F43.12 Poorly controlled blood pressure I99.8 Facial pain, acute R51.9 Time Spent (min) 60
[2025-05-24] MEDS: morphine 4 mg/mL SDV 1 mL IVP ×2 (03:32→07:56)
[2025-05-24 03:36] LABS: Lactic Acid level (Lactate) 2.4 mmol/L (0.5-2.2)
[2025-05-24] MEDS: ondansetron 2 mg/ML SDV 2 mL 4 MG IVP ×2 (06:01→12:29)
[2025-05-24 06:17] LABS: Lactic Sepsis W/Reflex 3.7 mmol/L (0.5-2.2)
--- NOTE | 2025-05-24 06:25 | PHA.VACGOAL ---
Vancomycin Goal - Goal Vancomycin Goal:: 15-20 mg/L Vancomycin Indication:: SSTI (SEVERE (HIGH TROUGH REQUESTED)) - Therapy Day of therpy:: Day []of [] . Actual body weight (kg): 211 lb 8 oz - Data Labs: WBC 5.01 10^3/uL (3.29-11.43) 05/24/25 00:05 RBC 4.20 10^6/uL (3.85-5.65) 05/24/25 00:05 Hgb 10.40 g/dL (11.27-16.99) L 05/24/25 00:05 Hct 34.1 % (36-47) L 05/24/25 00:05 MCV 81.2 fl (85-98) L 05/24/25 00:05 MCH 24.8 pg (27-33) L 05/24/25 00:05 MCHC 30.5 g/dL (30-55) 05/24/25 00:05 RDW 15.8 % (12.1-15.1) H 05/24/25 00:05 Sodium 139 mmol/L (136-145) 05/24/25 00:05 Potassium 3.5 mmol/L (3.5-5.1) 05/24/25 00:05 Chloride 101 mmol/L (98-107) 05/24/25 00:05 Carbon Dioxide 23 mmol/L (22-29) 05/24/25 00:05 Anion Gap 18.5 (5-19) 05/24/25 00:05 BUN 5 mg/dL (6-20) L 05/24/25 00:05 Creatinine 0.5 mg/dL (0.5-0.9) 05/24/25 00:05 GFR Calculation 138.1 mL/min (90-130) H 05/24/25 00:05 Last dialysis session:: N/A Treatment plan:: new consult Regimen:: LOADING DOSE OF 1500 MG GIVEN IN ER MAINTENANCE DOSE OF 1250 MG Q8H PER DOSING PROTOCOL Follow up:: WILL CONTINUE TO MONITOR AND FOLLOW UP DAILY
[2025-05-24 06:48] LABS: Glucose Urine UA Negative (Normal); Nitrate Urine Negative (Negative)
[2025-05-24 06:50] LABS: HCG Qualitative Urine. Negative (Negative)
[2025-05-24 06:53] LABS: Add Urine Microscopic? YES
--- OUTSIDE RECORDS SUMMARY | 2025-05-24 06:54 | XMS_ITS | Clinical Summary ---
Author Organization [facility] Address [address] [facility] [address] [place] [address] Care Team Providers Care Electric Distribution Engineer Name Role Phone Donaldo Nicholson MD Primary Care Provider [phone] Allergies Active Allergy Reactions Criticality Noted Date [...] CDT - 05/10/2025 5:22 PM CDT Emergency [facility] Emergency Medicine [address] [place] [address] Dental infection (Primary Dx); Cellulitis of face Discharge Disposition: Home or Self Care 05/10/2025 External Device Data STL ABSTRACTION Provider, Abstract 05/10/2025 External Device Data STL ABSTRACTION Provider, Abstract 05/10/2025 Travel 05/09/2025 3:59 AM CDT - 05/09/2025 5:35 AM CDT Emergency [address] [address] Harry Beauchamp MD Alcoholism ([facility]) (Primary Dx) Discharge Disposition: Home or Self Care 05/09/2025 Travel 05/04/2025 External Device Data STL ABSTRACTION Provider, Abstract 04/13/2025 External Device Data STL ABSTRACTION Provider, Abstract 04/13/2025 External Device Data STL ABSTRACTION Provider, Abstract 03/16/2025 External Device Data STL ABSTRACTION Provider, Abstract 03/16/2025 External Device Data STL ABSTRACTION Provider, Abstract 03/15/2025 External Device Data STL ABSTRACTION Provider, Abstract 03/14/[address] [address] Donaldo Nicholson MD appointment 03/12/2025 6:42 PM CDT - 03/12/2025 9:05 PM CDT Emergency [address] [address] Matthew Inman MD COVID-19 virus detected (Primary Dx); Nausea and vomiting, unspecified vomiting type Discharge Disposition: Home or Self Care 03/12/2025 Travel 03/10/2025 8:44 PM CDT - 03/10/2025 10:15 PM CDT [address] [address] Matthew Inman MD COVID-19 virus detected (Primary Dx); Mild intermittent asthma without complication Discharge Disposition: Home or Self Care 03/10/2025 Travel 03/09/2025 8:00 AM CDT Office Visit [address] [place] [address] Anya Acuña, AMMY Body aches (Primary Dx); Cough, unspecified type; Upper respiratory tract infection, unspecified type 03/07/2025 Orders Only [facility] Health Information Management [place] [address] [place] [address] Provider, Abstract 03/03/2025 7:45 AM CDT - 03/03/2025 11:59 PM CDT Hospital Encounter [facility] Emergency Medical Services [place] [address] [facility] [address] [place] [address] Ambulance, [facility] Discharge Disposition: RUST 02/22/2025 External Device Data STL ABSTRACTION Provider, [...] longer here Medical Devices Implanted Type Area Supervisor Partial Denture Department Device Identifier Shelf Expiration Date Model / Serial / Lot Clip Crtg Med/Lrg 1112 - Sna Implanted:Qty: 1 on 01/01/2023 by Diego Gilbert MD at [facility] Clip N/A: Abdomen [employer] 08/26/2027 1112 / NA / [id number] Procedures Procedure Name Priority Date/Time Associated Diagnosis [...] SCREEN PAP W/HPV Routine 09/02/2024 1:42 PM BOOSTER ASSEMBLER Cervical cancer screening from Last 3 Months or Most Recently Relevant to Health Maintenance Results * (ABNORMAL) COVID-19 ANTIGEN (03/10/2025 9:27 PM CDT) COVID-19 ANTIGEN POSITIVE( A) Presumptive Negative 03/10/2025 9:52 PM CDT [facility] Upper Respiratory ANTERIOR NARES SWAB / Unknown Collection / Unknown 03/10/2025 9:27 PM CDT 03/10/2025 9:32 PM CDT Narrative [facility] - 03/10/2025 9:52 PM CDT Adeline SARS antigen test has been authorized by FDA under an emergency use authorization (EUA) and has been authorized only for the detection of proteins from SARS-CoV-2 and influenza, not for any other viruses or pathogens. Adeline SARS Antigen KIKI is intended for the simultaneous qualitative detection and differentiation of nucleocapsid protein antigen from SARS-CoV-2 directly from nasopharyngeal (SOOT BLOWER) and nasal (NS) swab specimens collected from [...] between tests. Matthew Inman MD MICROBIOLOGY - [facility] L ORDERABLES Final Result [facility] CLIA # [id number] [address] [place] [address] * MANUAL DIFFERENTIAL (03/10/2025 9:27 PM CDT) PLATELET EST. Consistent w Count 03/10/2025 9:56 PM CDT [facility] RBC MORPHOLOGY Normal 03/10/2025 9:56 PM CDT [facility] Blood BLOOD SPECIMEN / Unknown Venipuncture / Unknown 03/10/2025 9:27 PM CDT 03/10/2025 9:31 PM CDT Matthew Inman MD HEMATOLOGY ORDERABLES COM Final Result Performing Organization Address City/[facility]/ZIP Co de Phone Number [facility] CLIA # [id number] [address] [place] [address] * BORDETELLA DETECTION (03/10/2025 9:27 PM CDT) SOURCE NASOPHARYNX 03/21/2025 7:15 AM CDT [facility] BORDETELLA PERTUSSIS DNA TNP 03/21/2025 7:15 AM CDT [facility] Comment: TEST(S) NOT PERFORMED: B. PERTUSSIS DNA B. PARAPERTUSSIS DNA TEST NOT PERFORMED The specimen submitted did not meet the specimen requirements. Please refer to the [facility] On-Line Test Directory or call Client Services for proper requirements. Upper Respiratory ENTIRE NASOPHARYNX / Unknown Collection / Unknown 03/10/2025 9:27 PM CDT 03/10/2025 9:31 PM CDT Narrative [facility] - 03/21/2025 7:15 AM CDT Performing Organization Information: Site ID: AMD Name: [facility]/[place] Address: [address] [place] [address] [place] [address] Director: Patrick Carreno M.D.,PhD Matthew Inman MD MICROBIOLOGY - GENERA L ORDERABLES Final Result [facility] [phone] * INFLUENZA VIRUS A AND B, ANTIGEN DETECTION (03/10/2025 9:27 PM CDT) Pathologist [facility] INFLUENZA A AG NOT DETECTED Not Detected 03/10/2025 9:52 PM CDT [facility] INFLUENZA B AG NOT DETECTED Not Detected 03/10/2025 9:52 PM CDT [facility] Upper Respiratory ENTIRE NASOPHARYNX / Unknown Collection / Unknown 03/10/2025 9:27 PM CDT 03/10/2025 9:32 PM CDT [facility] - 03/10/2025 9:52 PM CDT Negative results do not rule out infection. If clinically indicated, consider PCR testing which is more sensitive than antigen testing. If PCR testing is desired, consult with your local laboratory as sample recollection may be required. us Matthew Inman MD MICROBIOLOGY - [facility] L ORDERABLES Final Result [facility] CLIA # [id number] [address] [place] [address] * (ABNORMAL) CBC WITH DIFFERENTIAL (03/10/2025 9:27 PM CDT) WBC 5.5 4.0 - 10.0 K/uL 03/10/2025 9:56 PM [facility] RBC 4.40 3.93 - 5.22 M/uL 03/10/2025 9:56 PM [facility] HEMOGLOBIN 11.3 11.2 - 15.7 g/dL 03/10/2025 9:56 PM [facility] HEMATOCRIT 37.2 34.1 - 44.9 % 03/10/2025 9:56 PM [facility] MCV 84.5 79.4 - 94.8 fL 03/10/2025 9:56 PM [facility] MCH 25.7 25.6 - 32.2 pg 03/10/2025 9:56 PM [facility] MCHC 30.4(L) 32.2 - 35.5 g/dL 03/10/2025 9:56 PM [facility] RDW 17.2(H) 11.0 - 14.5 % 03/10/2025 9:56 PM [facility] RDW-STDEV 52.9 36.9 - 56.9 fL 03/10/2025 9:56 PM [facility] PLATELETS 200 163 - 337 K/uL 03/10/2025 9:56 PM [facility] MPV 9.4(L) 10.0 - 14.8 fL 03/10/2025 9:56 PM [facility] NEUTROPHILS 81(H) 34 - 71 % 03/10/2025 9:56 PM [facility] LYMPHOCYTES 10(L) 19 - 52 % 03/10/2025 9:56 PM [facility] MONOCYTES 7 5 - 13 % 03/10/2025 9:56 PM [facility] EOSINOPHILS 0(L) 1 - 6 % 03/10/2025 9:56 PM [facility] BASOPHILS 0 0 - 1 % 03/10/2025 9:56 PM [facility] IMMATURE GRANULOCYTES 2 % 03/10/2025 9:56 PM [facility] NEUTROPHIL ABSOLUTE 4.44 1.56 - 6.13 K/uL 03/10/2025 9:56 PM [facility] LYMPHOCYTE ABSOLUTE 0.56(L) 1.20 - 3.40 K/uL 03/10/2025 9:56 PM [facility] MONOCYTE ABSOLUTE 0.36 0.24 - 0.36 K/uL 03/10/2025 9:56 PM [facility] EOSINOPHIL ABSOLUTE 0.01(L) 0.04 - 0.36 K/uL 03/10/2025 9:56 PM [facility] BASOPHILS ABSOLUTE 0.02 0.01 - 0.08 K/uL 03/10/2025 9:56 PM [facility] IMMATURE GRANULOCYTES ABSOLUTE 0.12 K/uL 03/10/2025 9:56 PM [facility] Blood BLOOD SPECIMEN / Unknown Venipuncture / Unknown 03/10/2025 9:27 PM CDT 03/10/2025 9:31 PM CDT us Matthew Inman MD HEMATOLOGY ORDERABLES Final Result [facility] CLIA # [id number] [address] [place] [address] * (ABNORMAL) COMPREHENSIVE METABOLIC PANEL (03/10/2025 9:27 PM [facility]) Only the most recent of2 resultswithin the time period is included. SODIUM 138 136 - 145 mmol/L 03/10/2025 10:01 PM [facility] POTASSIUM 3.2(L) 3.5 - 5.1 mmol/L 03/10/2025 10:01 PM [facility] CHLORIDE 103 98 - 107 mmol/L 03/10/2025 10:01 PM [facility] CO2 23 22 - 29 mmol/L 03/10/2025 10:01 PM [facility] CALCIUM 9.1 8.6 - 10.0 mg/dL 03/10/2025 10:01 PM [facility] BUN 9 6 - 20 mg/dL 03/10/2025 10:01 PM [facility] CREATININE 0.82 0.51 - 0.95 mg/dL 03/10/2025 10:01 PM [facility] GLUCOSE 136(H) 74 - 99 mg/dL 03/10/2025 10:01 PM [facility] TOTAL PROTEIN 6.6 6.6 - 8.7 g/dL 03/10/2025 10:01 PM [facility] ALBUMIN 3.7 3.5 - 5.2 g/dL 03/10/2025 10:01 PM [facility] BILIRUBIN TOTAL 0.5 0.0 - 1.2 mg/dL 03/10/2025 10:01 PM [facility] ALKALINE PHOSPHATASE 53 35 - 104 U/L 03/10/2025 10:01 PM [facility] AST 98(H) 0 - 35 U/L 03/10/2025 10:01 PM [facility] ALT 182(H) 0 - 35 U/L 03/10/2025 10:01 PM [facility] GFR >60 >=60 mL/min/1.7 3 sq meter 03/10/2025 10:01 PM CDT [facility] Comment:eGFR calculated with 2020 CKD-EPI equation. Vegetarian diet, extremely high or low muscle mass, and may affect results. Cystatin C with Glomerular Filtration Rate is a suitable alternative for these patients. ANION GAP 12 5 - 20 mmol/L 03/10/2025 10:01 PM CDT [facility] Blood BLOOD SPECIMEN / Unknown Venipuncture / Unknown 03/10/2025 9:27 PM CDT 03/10/2025 9:31 PM CDT us Matthew Inman MD CHEMISTRY ORDERABLES Final Result [facility] CLIA # [id number] [address] [place] [address] * XR CHEST PA OR AP 1 [...] COVID-19 ANTIGEN POC Presumptively Negative Presumptively Negative [facility] INTERNAL KIT QC POC Pass Pass [facility] KIT LOT NUMBER POC [id number] [facility] KIT EXP DATE POC 07/11/2025 [facility] READ METHOD POC Instrument [facility] Upper Respiratory 03/09/2025 8:34 AM CDT Anyashlomo Esquivel Domenico GIFTED PROGRAM TEACHER POINT OF CARE TESTING Final Result [facility] CLIA# [id number] [address] [facility] [address] [place] [address] * (ABNORMAL) HEMOGLOBIN A1C (01/31/2025 2:32 PM CDT) Pathologist [facility] HEMOGLOBIN A1C 6.1(H) <5.7 % [facility] Comment: Test Performed at: [facility] [address] [place] [address] Kizzy King MD Blood 01/31/2025 2:32 PM CDT 02/01/2025 3:14 AM CDT Anya Esquivel Domenico GIFTED PROGRAM TEACHER CHEMISTRY ORDERABLES Final Result [facility] [phone] [facility] [place] [address] [address] [address] * CERV/VAG CYTO SCREEN PAP W/HPV (09/02/2024 1:42 PM BOOSTER ASSEMBLER) CLINICAL INFORMATION [facility] Comment:None given LAST MENSTRUAL PERIOD [facility] Comment:08/28/2024 PREV PAP: [facility] Comment:NONE GIVEN PREV BX: [facility] Comment:NONE GIVEN SOURCE [facility] Comment:Endocervix ADEQUACY: [facility] Comment: Satisfactory for evaluation. Endocervical/transformation zone component present. PAP INTERP [facility] Comment: Cytology Results: Negative for intraepithelial lesion or malignancy. COMMENT (PAP TEST) Q [facility]est [facility] Comment: This Pap test has been evaluated with computer assisted technology. VARNISH MAKER HELPER: Micheline jarrett [place] Comment: KEVIN CLEANING(ASCP) CT Screening location: [place] [address] EXPLANATORY NOTE [facility] Comment: EXPLANATORY NOTE: The Pap is a [...] information. HPV E6/E7 Not Detected Not Detected [facility] Comment: Methodology: Supervisor Cemetery Workers-Mediated Amplification This assay detects E6/E7 viral messenger RNA (mRNA) from 14 high-risk HPV types (16,18,31,33,35,39,45,51,52,56,58,59,66,68). Cervical sources are required for HPV testing. If a vaginal source from a patient who has had a total hysterectomy with removal of cervix was submitted, please contact the testing laboratory for alternative testing options. For additional information, please refer to http://education.Gingr/faq/FLK160o9 (This link if provided for information/ educational purposes only.) Test Performed at: [facility] [address] [place] [address] Cricket Faye Genital SWAB OF ENDOCERVIX / Unknown 09/02/2024 1:42 PM BOOSTER ASSEMBLER 09/04/2024 1:04 AM BOOSTER ASSEMBLER Jessica Lizarragasabrina Cunha GIFTED PROGRAM TEACHER PATHOLOGY/CYTOLOGY ORDER RICHELLE Final Result [facility] [phone] [facility] [address] [place] [address] from Last 3 Months or Most Recently Relevant to Health Maintenance Insurance [facility] MEDICAID RX INFOCROSSING Medicaid Advance Directives For more information, please contact: [phone] * Full Code (Latest Code Status on File) Date Activated Date Inactivated Comments 01/01/2023 12:26 PM 01/01/2023 5:57 PM * Full Code Date Activated Date Inactivated Comments 12/24/2022 9:14 PM 12/27/2022 6:29 PM Care Teams Electric Distribution Engineer Relationship Specialty Start Date End Date Donaldo Nicholson MD [address] [phone] PCP - General Family Practice 05/30/21
--- OUTSIDE RECORDS SUMMARY | 2025-05-24 06:54 | XMS_ITS | Encounter Summary ---
Author Organization [facility] Address [address] [place] [address] Care Team Providers Care Heel Caser Name Role Phone Donaldo Nicholson MD Primary Care Provider [phone] Encounter Details Date Type Department Care Team (Late st Contact Info) Description 06/19/2023 Lab Requisition [facility] Laboratory Services [place] [address] [address] GuerlineJessica flores, HIGH TENSION TESTER [address] [phone] Hematemesis Social History Tobacco Use Types Packs/Day [...] 136 - 145 mmol/L 06/19/2023 10:31 AM [facility] POTASSIUM 5.2(H) 3.5 - 5.1 mmol/L 06/19/2023 10:31 AM [facility] CHLORIDE 101 98 - 107 mmol/L 06/19/2023 10:31 AM [facility] CO2 26 22 - 29 mmol/L 06/19/2023 10:31 AM [facility] CALCIUM 9.2 8.6 - 10.0 mg/dL 06/19/2023 10:31 AM [facility] BUN 15 6 - 20 mg/dL 06/19/2023 10:31 AM [facility] CREATININE 0.85 0.51 - 0.95 mg/dL 06/19/2023 10:31 AM [facility] GLUCOSE 104(H) 74 - 99 mg/dL 06/19/2023 10:31 AM [facility] TOTAL PROTEIN 7.5 6.6 - 8.7 g/dL 06/19/2023 10:31 AM [facility] ALBUMIN 4.0 3.5 - 5.2 g/dL 06/19/2023 10:31 AM [facility] BILIRUBIN TOTAL 0.5 <=1.2 mg/dL 06/19/2023 10:31 AM [facility] ALKALINE PHOSPHATASE 75 35 - 104 U/L 06/19/2023 10:31 AM [facility] AST 103(H) 10 - 35 U/L 06/19/2023 10:31 AM [facility] ALT 92(H) 10 - 35 U/L 06/19/2023 10:31 AM [facility] GFR >60 >=60 mL/min/1.7 3 sq meter 06/19/2023 10:31 AM [facility] Comment:eGFR calculated with 2020 CKD-EPI equation. Vegetarian diet, extremely high or low muscle mass, and may affect results. Cystatin C with Glomerular Filtration Rate is a suitable alternative for these patients. ANION GAP 9(L) 12 - 20 mmol/L 06/19/2023 10:31 AM [facility] Blood Collection / Unknown 06/19/2023 10:04 AM CDT 06/19/2023 10:05 AM CDT us Jessica Cunha HIGH TENSION TESTER CHEMISTRY ORDERABLES Fin al Result [id number] [address] [place] [address] * (ABNORMAL) CBC WITH DIFFERENTIAL (06/19/2023 10:04 AM CDT) WBC 8.1 4.0 - 10.0 K/uL 06/19/2023 10:16 AM [facility] RBC 4.77 3.93 - 5.22 M/uL 06/19/2023 10:16 AM [facility] HEMOGLOBIN 11.9 11.2 - 15.7 g/dL 06/19/2023 10:16 AM [facility] HEMATOCRIT 38.2 34.1 - 44.9 % 06/19/2023 10:16 AM [facility] MCV 80.1 79.4 - 94.8 fL 06/19/2023 10:16 AM [facility] MCH 24.9(L) 25.6 - 32.2 pg 06/19/2023 10:16 AM [facility] MCHC 31.2(L) 32.2 - 35.5 g/dL 06/19/2023 10:16 AM [facility] RDW 14.4 11.0 - 14.5 % 06/19/2023 10:16 AM [facility] RDW-STDEV 41.4 36.9 - 56.9 fL 06/19/2023 10:16 AM [facility] PLATELETS 241 163 - 337 K/uL 06/19/2023 10:16 AM [facility] MPV 9.7(L) 10.0 - 14.8 fL 06/19/2023 10:16 AM [facility] NEUTROPHILS 62 34 - 71 % 06/19/2023 10:16 AM [facility] LYMPHOCYTES 27 19 - 52 % 06/19/2023 10:16 AM [facility] MONOCYTES 9 5 - 13 % 06/19/2023 10:16 AM [facility] EOSINOPHILS 1 1 - 6 % 06/19/2023 10:16 AM [facility] BASOPHILS 1 0 - 1 % 06/19/2023 10:16 AM [facility] IMMATURE GRANULOCYTES 1 % 06/19/2023 10:16 AM [facility] NEUTROPHIL ABSOLUTE 4.98 1.56 - 6.13 K/uL 06/19/2023 10:16 AM [facility] LYMPHOCYTE ABSOLUTE 2.19 1.20 - 3.40 K/uL 06/19/2023 10:16 AM [facility] MONOCYTE ABSOLUTE 0.70(H) 0.24 - 0.36 K/uL 06/19/2023 10:16 AM [facility] EOSINOPHIL ABSOLUTE 0.07 0.04 - 0.36 K/uL 06/19/2023 10:16 AM [facility] BASOPHILS ABSOLUTE 0.05 0.01 - 0.08 K/uL 06/19/2023 10:16 AM [facility] IMMATURE GRANULOCYTES ABSOLUTE 0.06 K/uL 06/19/2023 10:16 AM [facility] Blood Venipuncture / Unknown 06/19/2023 10:04 AM CDT 06/19/2023 10:05 AM CDT us Jessica Dupree Guerline HIGH TENSION TESTER HEMATOLOGY ORDERABLES Fi nal Result [facility] # [id number] [address] [address] documented in this encounter Visit Diagnoses Diagnosis [...] documented as of this encounter Care Teams Heel Caser Relationship Specialty Start Date End Date Donaldo Nicholson MD [address] [phone] PCP - General Family Practice 05/30/21 documented as of this encounter
--- OUTSIDE RECORDS SUMMARY | 2025-05-24 06:54 | XMS_ITS | Encounter Summary ---
Author Organization [facility] Address [address] [place] [address] Care Team Providers Care Med Specialist Name Role Phone Donaldo Nicholson MD Primary Care Provider [phone] Encounter Details Date Type Department Care Team (Latest Contact Info) Description 10/22/2024 Results Follow-Up [facility] Family Medicine [place] [address] [facility] [address] [place] [address] Mary Olmos FNP [address] [place] [address] COMPREHENSIVE METABOLIC PANEL Social History [...] Total Score: 6 10/14/19 25 8:35 AM BAG GRADER documented as of this encounter Care Teams Med Specialist Relationship Specialty Start Date End Date Donaldo Nicholson MD [address] [phone] PCP - General Family Practice 05/30/21 documented as of this encounter
--- OUTSIDE RECORDS SUMMARY | 2025-05-24 06:54 | XMS_ITS | Encounter Summary ---
Author Organization [employer] Address [address] [place] [address] Care Team Providers Care Spring Production Supervisor Name Role Phone Donaldo Nicholson MD Primary Care Provider [phone] Encounter Details Date Type Department Care Team (Late st Contact Info) Description 10/14/2024 Lab Requisition [facility] [place] [address] [place] [address] Mary Olmos FNP [address] [place] [id number] Hemorrhage of anus and rectum Social History [...] COMPREHENSIVE METABOLIC PANEL Stat 10/14/2024 3:55 PM GETTER FILLER Hemorrhage of anus and rectum documented in this encounter Results * (ABNORMAL) COMPREHENSIVE METABOLIC PANEL (10/14/2024 3:55 PM GETTER FILLER) SODIUM 138 136 - 145 mmol/L 10/14/2024 4:28 PM [facility] POTASSIUM 3.9 3.5 - 5.1 mmol/L 10/14/2024 4:28 PM [facility] CHLORIDE 100 98 - 107 mmol/L 10/14/2024 4:28 PM [facility] CO2 29 22 - 29 mmol/L 10/14/2024 4:28 PM [facility] CALCIUM 8.9 8.6 - 10.0 mg/dL 10/14/2024 4:28 PM [facility] BUN 12 6 - 20 mg/dL 10/14/2024 4:28 PM [facility] CREATININE 0.72 0.51 - 0.95 mg/dL 10/14/2024 4:28 PM [facility] GLUCOSE 110(H) 74 - 99 mg/dL 10/14/2024 4:28 PM [facility] TOTAL PROTEIN 7.2 6.6 - 8.7 g/dL 10/14/2024 4:28 PM [facility] ALBUMIN 3.9 3.5 - 5.2 g/dL 10/14/2024 4:28 PM [facility] BILIRUBIN TOTAL 1.2 <=1.2 mg/dL 10/14/2024 4:28 PM [facility] ALKALINE PHOSPHATASE 69 35 - 104 U/L 10/14/2024 4:28 PM [facility] AST 96(H) 10 - 35 U/L 10/14/2024 4:28 PM [facility] ALT 101(H) 10 - 35 U/L 10/14/2024 4:28 PM [facility] GFR >60 >=60 mL/min/1.7 3 sq meter 10/14/2024 4:28 PM GETTER FILLER [facility] Comment:eGFR calculated with 2020 CKD-EPI equation. Vegetarian diet, extremely high or low muscle mass, and may affect results. Cystatin C with Glomerular Filtration Rate is a suitable alternative for these patients. ANION GAP 9(L) 12 - 20 mmol/L 10/14/2024 4:28 PM GETTER FILLER [facility] Blood BLOOD SPECIMEN / Unknown Collection / Unknown 10/14/2024 3:55 PM GETTER FILLER 10/14/2024 4:10 PM GETTER FILLER us Mary Olmos [facility] CHEMISTRY ORDERABLES Final Resul t [facility] CLIA # [id number] [address] [address] documented in this encounter Visit Diagnoses Diagnosis [...] Total Score: 6 10/14/19 25 8:35 AM GETTER FILLER documented as of this encounter Care Teams Spring Production Supervisor Relationship Specialty Start Date End Date Donaldo Nicholson MD [address] [id number] PCP - General Family Practice 05/30/21 documented as of this encounter
[2025-05-24 06:56] LABS: Specific Gravity, Urine 1.063 (1.005-1.030)
[2025-05-24 07:47] LABS: Reflex Lactate Order REFLEX LACTIC ORDERD
[2025-05-24 09:04] LABS: Lactic Acid level (Lactate) 2.2 mmol/L (0.5-2.2)
[2025-05-24] MEDS: HYDROcodone-acetaminophen 5-325 mg Tablet 1 TAB PO (17:36)
[2025-05-25] VITALS (7 sets, daily range): BP systolic 119–149; BP diastolic 73–90; PULSE 77–95; RESP 16–17; TEMP 36.3–36.9; O2SAT 90–97
[2025-05-25] MEDS: HYDROcodone-acetaminophen 5-325 mg Tablet 1 TAB PO ×2 (01:24→17:50)
[2025-05-25] MEDS: blistex lip oint 7 gm Tube 1 APPLIC TOPICAL (01:32)
[2025-05-25 08:05] LABS: Hematocrit 31.2 % (36-47); Hemoglobin 9.30 g/dL (11.27-16.99); Mean Corpuscular HGB Conc 29.8 g/dL (30-55); Mean Corpuscular Hemoglobin 25.3 pg (27-33); Mean Corpuscular Volume 84.8 fl (85-98); Nucleated Red Blood Cells % 0 %; Platelet Count 175 10^3/cmm (157-399); Red Blood Count 3.68 10^6/uL (3.85-5.65); White Blood Count 3.06 10^3/uL (3.29-11.43)
[2025-05-25 08:26] LABS: Alanine Aminotransferase 51 U/L (0-33); Albumin Level 3.5 g/dL (3.5-5.2); Alkaline Phosphatase 57 U/L (35-105); Anion Gap 9.5 (5-19); Aspartate Amino Transferase 67 U/L (0-32); Blood Urea Nitrogen 5 mg/dL (6-20); Calcium 8.2 mg/dL (8.5-10.5); Carbon Dioxide 27 mmol/L (22-29); Chloride 105 mmol/L (98-107); Creatinine Clr Calc Pharmacy 137.3729; Globulin 2.6 g/dL (1.3-4.6); Glucose 115 mg/dL (65-115); Magnesium 1.6 mg/dL (1.7-2.3); Osmolality Calculated 284 mOsm/kg (285-295); Potassium 3.5 mmol/L (3.5-5.1); Sodium 138 mmol/L (136-145); Total Protein 6.1 g/dL (6.6-8.7)
[2025-05-25] MEDS: ampicillin-sulbactam 3 GM in sodium chloride 0.9% (plus) 50 ML IV ×3 (10:38→21:11)
--- NOTE | 2025-05-25 13:24 | PM.PN ---
Subjective Subjective: facial rash better afebrile Vitals/I&O/Wt Last Vital Signs Temp 98.0 F 05/25/25 11:12 Pulse 90 05/25/25 11:12 Resp 16 05/25/25 11:12 BP 148/90 05/25/25 11:12 Pulse Ox 95 05/25/25 11:12 O2 Del Method Room Air 05/25/25 11:12 05/24/25 05/25/25 05/25/25 22:59 06:59 14:59 Intake Total 1211.667 / 3055.000 250 / 3305.000 1710 / 1710 Balance 1211.667 / 3055.000 250 / 3305.000 1710 / 1710 Weight last 48 hrs Weight 219 lb 3 oz Weight 211 lb 8 oz Weight 211 lb 8 oz Weight 211 lb 8 oz Weight 200 lb Physical Exam Narrative: General: NAD HEENT: less facial redness, eschar on chin Lungs:CTA CVS:RRr Abd:Soft, NT MSK: no swelling Data 05/25/25 07:59 05/25/25 07:59 Micro: Microbiology 05/24/25 00:05 Gram Stain - Final Face Wound Culture - Preliminary 05/24/25 00:17 Blood Culture - Preliminary Blood NEGATIVE TO DATE 05/24/25 00:05 Blood Culture - Preliminary Blood NEGATIVE TO DATE A&P Assessment and plan 1. Cellulitis of face: 2. Facial pain, acute: 3. Generalized anxiety disorder: Plan: 1. add unasyn, continue vanc 2. blood cx negative so far 3. embedded case manager consult to assist with dental appointment 4. dc in next 24 hours most likely PDMP PDMP Reviewed: Not Reviewed Attestations Medical Necessity Statement*: iv abx Coding Level of Care Code Acute Code for [facility] Fwd Diagnoses Cellulitis of face L03.211 Facial pain, acute R51.9 Generalized anxiety disorder F41.1
[2025-05-26] MEDS: HYDROcodone-acetaminophen 5-325 mg Tablet 1 TAB PO ×3 (00:49→19:33)
[2025-05-26] MEDS: ampicillin-sulbactam 3 GM in sodium chloride 0.9% (plus) 50 ML IV ×4 (03:51→21:19)
[2025-05-26 04:00] VITALS: BP 152/91; PULSE 86; RESP 16; TEMP 36.9; O2SAT 91
[2025-05-26 07:28] VITALS: BP 170/102; PULSE 84; RESP 16; TEMP 36.7; O2SAT 93
[2025-05-26 10:40] LABS: Creatinine Clr Calc Pharmacy 165.6394
--- NOTE | 2025-05-26 11:38 | P.CONIM_ITS ---
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 She has been being medically managed for facial cellulitis I was consulted to evaluate the possibility of needing surgical next dimension for excision of submandible cyst or incision of drainage at the level of the mandible. Patient shows improvement of symptoms and swelling since admission. Denies current suppuration. Review of Systems 2 General: Reports: 10 or more systems reviewed and unremarkable except in HPI and below Medications/Allergies Home Medications ?Medication ?Instructions ?Recorded ?Confirmed ?Last Taken ?Type fluoxetine 20 mg capsule (Prozac) 20 mg PO DAILY 08/0205/24/25 05/23/25 History albuterol sulfate 90 mcg/actuation 2 puff inhalation Q 6H PRN 05/24/25 05/24/25 Unknown History aerosol inhaler (Ventolin HFA) Shortness Of Breath Or Wheezing chlorhexidine gluconate 0.12 % See Rx Instructions .Ro [place] .COMPLEX 05/24/25 05/24/25 05/23/25 History mouthwash clindamycin HCl 300 mg capsule 300 mg PO TID 05/24/25 05/24/25 05/16/25 History ibuprofen 200 mg tablet (Advil) 400 mg PO Q6H PRN Feve r Or Pain 05/24/25 05/24/25 05/22/25 History lisinopril 5 mg tablet 5 mg PO DAILY 05/24/2505/2405/23/25 History mupirocin 2 % topical ointment 1 applic topical BID 05/24/25 05/17/25 History Allergies Allergy/AdvReac Type Severity Reaction Status Date / Time escitalopram (From Lexapro) Allergy Severe Unknown Verified 03/10/24 15:27 cefuroxime (From Ceftin) Allergy Intermediate Hives. Verified 03/10/24 15:27 Current Medications Generic Name Dose Route Start Last Admin Trade Name Freq PRN Reason Stop Dose Admin Hydrocodone Bitart/Acetaminophen 1 tab 05/24/25 12:49 05/26/25 06:50 Hydrocodone-Acetaminophen 5-325 Mg Tablet PO 1 tab Q6H PRN Administration MODERATE PAIN Camphor/Menthol/Phenol 1 applic 05/25/25 00:51 05/25/25 01:32 Blistex Lip Oint 7 Gm Tube TOPICAL 1 applic PRN PRN Administration DRYNESS Docusate Sodium 100 mg 05/24/25 09:00 05/26/25 08:42 Docusate Sodium 100 Mg Capsule PO 100 mg BID ROGE Administration Enoxaparin Sodium 40 mg 05/24/25 03:00 05/26/25 02:53 Enoxaparin 40 Mg/0.4 Ml Syringe SUBCUT 40 mg Q24H ROGE Administration Fluoxetine HCl 20 mg 05/24/25 09:00 05/26/25 08:42 Fluoxetine 20 Mg Capsule PO 20 mg DAILY ROGE Administration Ampicillin Sodium/Sulbactam 50 mls @ 100 mls/hr 05/25/25 09:30 05/26/25 09:16 Sodium 3 gm/ Sodium Chloride IV Infused Q6H ROGE Infusion Protocol Vancomycin HCl 1,500 mg in 300 mls @ 200 mls/hr 05/25/25 09:30 05/26/25 10:47 Vancocin IV Infused Q8H ROGE Infusion Ketorolac Tromethamine 15 mg 05/25/25 22:45 05/26/25 09:17 Ketorolac 30 Mg/Ml Inj IVP 05/30/25 22:44 15 mg Q6H ROGE Administration Lisinopril 10 mg 05/24/25 09:00 05/26/25 08:42 Lisinopril 10 Mg Tablet PO 10 mg DAILY ROGE Administration Morphine Sulfate 4 mg 05/24/25 02:43 05/24/25 07:56 Morphine 4 Mg/Ml Sdv 1 Ml IVP 4 mg Q4H PRN Administration SEVERE PAIN Ondansetron HCl 4 mg 05/24/25 02:43 05/24/25 12:29 Ondansetron 2 Mg/Ml Sdv 2 Ml IVP 4 mg Q4H PRN Administration vomiting, or N/V if npo Pantoprazole Sodium 40 mg 05/24/25 09:00 05/26/25 08:[address] 40 Mg Tablet PO 40 mg DAILY ROGE Administration PFSH Acute 2 PFSH: Surgical History History of sleeve gastrectomy Hx laparoscopic cholecystectomy Hx of section History of tonsillectomy and adenoidectomy Social History Smoking and tobacco/nicotine status: former use of tobacco/nicotine Quit status (tobacco/nicotine): has tried quititng Number of times tried to quit tobacco: 4 Second hand smoke exposure: No Current occupation: [employer] Vitals/I&O/Wt Last Vital Signs Temp 98.1 F 05/26/25 07:28 Pulse 84 05/26/25 07:28 Resp 16 05/26/25 07:28 BP 170/102 05/26/25 07:28 Pulse Ox 93 05/26/25 07:28 O2 Del Method Room Air 05/26/25 07:28 05/25/25 05/26/25 05/26/25 22:59 06:59 14:59 Intake Total 1226.667 / 3950.000 350 / 4300.000 2041.667 / 2041.667 Balance 1226.667 / 3950.000 350 / 4300.000 2041.667 / 2041.667 Weight last 48 hrs Weight 221 lb Weight 219 lb 3 oz Physical Exam 2 Narrative: There is significant erythema and scarring of the chin, there is soft tissue swelling especially in the lower aspect of the mandible but no discernible drainable fluid collections at this time. Data 05/25/25 07:59 05/26/25 08:39 Micro: Microbiology 05/24/25 00:05 Gram Stain - Final Face Wound Culture - Preliminary A&P Assessment and plan 1. Cellulitis of face: Plan: After complete history physical examination review available clinical data the following is my assessment. Facial CT fails to show evidence of abscess or any other drainable collection, patient is subjectively improving and physical examination fails to show evidence of a drainable collection at this time. Will do management of facial pathology is outside my area of expertise I do think the patient will benefit from a visit to dermatology as soon as possible in the outpatient setting to develop a treatment plan for her chronic facial cellulitis. I could not even divide any areas that require immediate surgical intervention at this time. This has been communicated to the medical team they agree with the plan. PDMP PDMP Reviewed: Not Reviewed Coding Level of Care Code Acute Code for [facility] Fwd Diagnoses Cellulitis of face L03.211
[2025-05-26 11:52] VITALS: BP 160/81; PULSE 84; RESP 16; TEMP 36.8; O2SAT 93
--- NOTE | 2025-05-26 14:15 | P.PN_ITS ---
Subjective 2 Subjective: Patient has a significant history for gastric bypass surgery. She reports that she has had an altered immune system ever since. 2 years ago she had a very similar infection of her teeth as well as chin. She reports that she was told it was MRSA. It took 3 different rounds of antibiotics for her to finally get better. This recent history includes 1 course of antibiotics- clarithromycin. she said it got better, However then over the last 3 days it got worse and it did drain that night prior to admission. She states that she is now able to replace her partial dentures and eat some. Overall she is improved, Though she is worried that history will repeat itself Vitals/I&O/Wt Last Vital Signs Temp 98.2 F 05/26/25 11:52 Pulse 84 05/26/25 11:52 Resp 16 05/26/25 11:52 BP 160/81 05/26/25 11:52 Pulse Ox 93 05/26/25 11:52 O2 Del Method Room Air 05/26/25 11:52 05/25/25 05/26/25 05/26/25 22:59 06:59 14:59 Intake Total 1226.667 / 3950.000 350 / 4300.000 2401.667 / 2401.667 Balance 1226.667 / 3950.000 350 / 4300.000 2401.667 / 2401.667 Weight last 48 hrs Weight 100.244 kg Weight 99.422 kg Physical Exam 2 Narrative: Obese alert oriented no acute distress [employer] with erythema and edema. It is localized to the chin I do not see any dental or gum abscess anteriorly. The overall area of erythema and edema does seem edematous and soft as if there are contents within. Heart regular rate and rhythm normal S1-S2 Lungs clear to auscultation without wheezes rales or rhonchi Abdomen soft nontender nondistended positive bowel sounds no hepatosplenomegaly Extremities no clubbing cyanosis or edema Data 05/25/25 07:59 05/26/25 08:39 Micro: Microbiology 05/24/25 00:05 Gram Stain - Final Face Wound Culture - Preliminary A&P Assessment and plan 1. Cellulitis of face: 2. Facial pain, acute: 3. Generalized anxiety disorder: 4. Lymphadenopathy of head and neck region: Plan: 1. add unasyn, continue vanc 2. blood cx negative so far 3. director case consult to assist with dental appointment 4. Asked general surgery to assess the patient to see if they felt that it was subcutaneous abscess or possibly a cyst that is wall would need to be removed. I spoke with the general surgeon. I appreciate his assistance. At this time the recommendation is to continue antibiotics with follow-up with local dermatology or perhaps consult to a surgeon or other to determine if there is an underlying cyst that keeps getting infected. 5. Check labs tomorrow and if stable consideration to changing to oral antibiotic and discharging home with coverage for MRSA. PDMP PDMP Reviewed: Not Reviewed Attestations 2 Medical Necessity Statement*: iv abx Coding Level of Care Code 60258 Diagnoses Cellulitis of face L03.211 Facial pain, acute R51.9 Generalized anxiety disorder F41.1 Lymphadenopathy of head and neck region R59.0
[2025-05-26 16:29] VITALS: BP 150/90; PULSE 91; RESP 16; TEMP 36.7; O2SAT 92
[2025-05-26 20:00] VITALS: BP 167/97; PULSE 91; RESP 17; TEMP 37.2; O2SAT 93
[2025-05-26 23:39] VITALS: BP 142/89; PULSE 85; RESP 16; TEMP 36.9; O2SAT 92
[2025-05-27] MEDS: ampicillin-sulbactam 3 GM in sodium chloride 0.9% (plus) 50 ML IV ×2 (03:49→09:42)
[2025-05-27 04:00] VITALS: BP 161/97; PULSE 88; RESP 17; TEMP 37; O2SAT 94
[2025-05-27 07:57] VITALS: BP 171/107; PULSE 83; RESP 18; TEMP 36.9; O2SAT 90
[2025-05-27] MEDS: ondansetron 2 mg/ML SDV 2 mL 4 MG IVP (08:16)
--- NOTE | 2025-05-27 09:58 | PM.DCS ---
Discharge Providers Date of Admission: 05/24/25 02:43 Date of Discharge: May 27, 2025 Attending Provider at Admission: [place] Diallo MD Attending Provider at Discharge: Yasir Estrada DO Primary Care Provider: Donaldo Nicholson Diagnoses at Discharge Discharge Diagnosis 1. Cellulitis of face: 2. Facial pain, acute: 3. Generalized anxiety disorder: 4. Lymphadenopathy of head and neck region: Reason for Visit Reason for Visit: Facial swelling Brief History: Patient has a significant history for gastric bypass surgery. She reports that she has had an altered immune system ever since. 2 years ago she had a very similar infection of her teeth as well as chin. She reports that she was told it was MRSA. It took 3 different rounds of antibiotics for her to finally get better. This recent history includes 1 course of antibiotics- clarithromycin. she said it got better, However then over the last 3 days it got worse and it did drain that night prior to admission. She states that she is now able to replace her partial dentures and eat some. Overall she is improved, Though she is worried that history will repeat itself Hospital Course Hospital Course Patient was admitted to the general medical floor. She was placed on ampicillin and vancomycin for the treatment of the facial cellulitis. When I saw her on 05/26/2025 I was concerned that patient may have a cystic lesion that may need excised. Consult was placed to general surgery. I general surgeons felt there was no evidence of a drainable collection at the time. He recommended follow-up with dermatology. Today on 05/27/2025 the edema and erythema is markedly improved today. She is able to eat although feeling a little nauseous and constipated today. She prefers to go home and manage her constipation when she gets home. She has been given [id number] advice for medications Physical Exam Narrative: Obese alert oriented no acute distress Chin with erythema and edema. The erythema is markedly improved. The color is now more pink. And there is significantly less edema. There is no involvement of the gum at this time. Heart regular rate and rhythm normal S1-S2 Lungs clear to auscultation without wheezes rales or rhonchi Abdomen soft nontender nondistended diminished bowel sounds no hepatosplenomegaly Extremities no clubbing cyanosis or edema Discharge Data Studies Completed and Pending Completed Studies During Hospitalization Category Date Time Status CT facial bones w con [id number] Stat Cat Scan 05/24/25 00:01 Completed Pending at discharge Category Date Time Status Blood Culture Stat Lab 05/24/25 00:17 Results Wound Culture and Gram Stain Stat Lab 05/24/25 00:05 Results Radiology Impressions Face CT 05/24/25 00:01 IMPRESSION: Multiple tiny nodes in the submandibular and submental region particularly in the left, with associated subcutaneous stranding and edema in the tissues anterior to the maxilla and mandible, without definite odontogenic abscess. Multiple caries bilaterally may represent a possible source. Findings concerning for cellulitis with other etiologies not excluded. Laboratory Results WBC 3.06 10^3/uL (3.29-11.43) L 05/25/25 07:59 RBC 3.68 10^6/uL (3.85-5.65) L 05/25/25 07:59 Hgb 9.30 g/dL (11.27-16.99) L 05/25/25 07:59 Hct 31.2 % (36-47) L 05/25/25 07:59 MCV 84.8 fl (85-98) L 05/25/25 07:59 MCH 25.3 pg (27-33) L 05/25/25 07:59 MCHC 29.8 g/dL (30-55) L 05/25/25 07:59 RDW 15.8 % (12.1-15.1) H 05/25/25 07:59 Plt Count 175 10^3/cmm (157-399) 05/25/25 07:59 MPV 8.7 fL (7.4-10.4) 05/25/25 07:59 Neut % (Auto) 45.7 % 05/25/25 07:59 Lymph % (Auto) 38.9 % 05/25/25 07:59 [place] % (Auto) 7.5 % 05/25/25 07:59 Eos % (Auto) 5.9 % 05/25/25 07:59 Baso % (Auto) 0.7 % 05/25/25 07:59 Neut # (Auto) 1.40 10^3/uL (1.8-7.7) L 05/25/25 07:59 Lymph # (Auto) 1.2 10^3/uL (0.8-4.8) 05/25/25 07:59 [place] # (Auto) 0.2 10^3/uL (0.2-0.9) 05/25/25 07:59 Eos # (Auto) 0.2 10^3/uL (0.0-0.8) 05/25/25 07:59 Baso # (Auto) 0.0 10^3/uL (0.0-0.1) 05/25/25 07:59 Nucleated RBC % (auto) 0 % 05/25/25 07:59 Nucleated RBCs # 0.0 /100WBC 05/25/25 07:59 Sodium 138 mmol/L (136-145) 05/25/25 07:59 Potassium 3.5 mmol/L (3.5-5.1) 05/25/25 07:59 Chloride 105 mmol/L (98-107) 05/25/25 07:59 Carbon Dioxide 27 mmol/L (22-29) 05/25/25 07:59 Anion Gap 9.5 (5-19) 05/25/25 07:59 BUN 5 mg/dL (6-20) L 05/25/25 07:59 Creatinine 0.5 mg/dL (0.5-0.9) 05/26/25 08:39 GFR Calculation 138.1 mL/min (90-130) H 05/26/25 08:39 Glucose 115 mg/dL (65-115) 05/25/25 07:59 Calculated Osmolality 284 mOsm/kg (285-295) L 05/25/25 07:59 Lactic Acid 3.7 mmol/L (0.5-2.2) H 05/24/25 05:55 Lactic Acid (Sepsis) 2.2 mmol/L (0.5-2.2) 05/24/25 08:42 Calcium 8.2 mg/dL (8.5-10.5) L 05/25/25 07:59 Phosphorus 2.9 mg/dL (2.5-4.5) 05/25/25 07:59 Magnesium 1.6 mg/dL (1.7-2.3) L 05/25/25 07:59 Total Bilirubin 1.0 mg/dL (0.15-1.2) 05/25/25 07:59 AST 67 U/L (0-32) H 05/25/25 07:59 ALT 51 U/L (0-33) H 05/25/25 07:59 Alkaline Phosphatase 57 U/L (35-105) 05/25/25 07:59 Total Protein 6.1 g/dL (6.6-8.7) L 05/25/25 07:59 Albumin 3.5 g/dL (3.5-5.2) 05/25/25 07:59 Globulin 2.6 g/dL (1.3-4.6) 05/25/25 07:59 HCG, Qual Negative (Negative) 05/24/25 06:33 Urine Color Yellow (Yellow) 05/24/25 06:33 Urine Appearance Clear (CLEAR) 05/24/25 06:33 Urine pH 6.0 (5-7) 05/24/25 06:33 Ur Specific [place] 1.063 (1.005-1.030) H 05/24/25 06:33 Urine Protein Trace (Negative) A 05/24/25 06:33 Urine Glucose (UA) Negative (Normal) 05/24/25 06:33 Urine Ketones 3+ (Negative) H 05/24/25 06:33 Urine Blood Negative (Negative) 05/24/25 06:33 Urine Nitrate Negative (Negative) 05/24/25 06:33 Urine Bilirubin Negative (Negative) 05/24/25 06:33 Urine Urobilinogen 0.2 mg/dL (Negative) 05/24/25 06:33 Ur Leukocyte Esterase Negative (Negative) 05/24/25 06:33 Urine RBC 0-2 /hpf (0-2) 05/24/25 06:33 Urine WBC 0-5 /hpf (0-5) 05/24/25 06:33 Ur Squamous Epith Cells 0-5 /hpf (0-5) 05/24/25 06:33 Amorphous Sediment Not Reportable 05/24/25 06:33 Urine Bacteria None seen /hpf (NONE) 05/24/25 06:33 Hyaline Casts 0-4 /lpf H 05/24/25 06:33 Vancomycin Trough 16.2 ug/mL (10-15) H 05/26/25 08:39 Vitals Last Vital Signs Temp 98.4 F 05/27/25 07:57 Pulse 83 05/27/25 07:57 Resp 18 05/27/25 07:57 BP 171/107 05/27/25 07:57 Pulse Ox 90 05/27/25 07:57 O2 Del Method Room Air 05/27/25 07:57 Discharge Plan Discharge Patient Disposition: Home Condition: Stable Prescriptions: New lisinopril 10 mg Tablet 10 mg PO DAILY Qty: 30 0RF magnesium oxide 400 mg (241.3 mg magnesium) Tablet 400 mg PO ONCE Qty: 60 0RF fluconazole 150 mg tablet 150 mg PO DAILY Qty: 1 0RF Rx Instructions: administer with signs of yeast infection sulfamethoxazole-trimethoprim [Bactrim] 400-80 mg tablet 1 tab PO BID 10 Days Qty: 20 0RF Continued fluoxetine [Prozac] 20 mg capsule 20 mg PO DAILY ibuprofen [Advil] 200 mg Tablet 400 mg PO Q6H PRN (Reason: Fever Or Pain) albuterol sulfate [Ventolin HFA] 90 mcg/actuation HFA aerosol inhaler 2 puff INHALATION Q6H PRN (Reason: Shortness Of Breath Or Wheezing) chlorhexidine gluconate 0.12 % mouthwash See Rx Instructions .ROUTE .COMPLEX Rx Instructions: SWISH AND SPIT 15 ML BY MOUTH/THROAT TWICE DAILY FOR 10 DAYS Discontinued lisinopril 5 mg tablet 5 mg PO DAILY mupirocin 2 % ointment 1 applic TOPICAL BID clindamycin HCl 300 mg capsule 300 mg PO TID [employer] OK for DC: Surgery and Hospitalist Discharge Order = DC NOW: Discharge Order (Routine); Ordered 05/27/25 Ordered By: Yasir Estrada Referrals: Donaldo Nicholson [Primary Care Provider, Family Practice] Teresa Vilchis DO [Physician, Dermatology] - 2 weeks Discharge Diet: Advance as tolerated Discharge Activity: Resume usual activity Patient Instructions: Patient Portal & Heidi Instructions Plan of Treatment: Recommend [id number] docusate sodium 100 mg p.o. twice daily as stool softener. May use milk of magnesia as directed as a laxative. A new referral to dermatology to assess the chin area for cystic lesion that may need removal. Discharge Attestations Time Spent in Discharge Care*: less than 30 min Quality Metrics Clinical Quality Measures [ No reported AMI, CVA or VTE this stay] Coding Level of Care Code Acute Code for Chg Fwd Diagnoses Cellulitis of face L03.211 Facial pain, acute R51.9 Generalized anxiety disorder F41.1 Lymphadenopathy of head and neck region R59.0
[2025-05-27 12:32] VITALS: BP 143/97; PULSE 95; RESP 16; TEMP 37.1; O2SAT 90
[2025-05-27 15:58] VITALS: BP 143/97; PULSE 95; RESP 16; TEMP 37.1; O2SAT 95
== END 2025-05-27 16:00 | disposition home or self-care (01) | DRG 603 ==
LOC: ER 05-24 01:43 → MEDSURG 05-24 02:20
PROVIDERS: Admitting Provider Internal Medicine; Emergency Provider Student in an Organized Health Care Education/Training Program; PCP Family Medicine; Visit Provider Internal Medicine
DX: L03.211 Cellulitis of face (principal); F33.2 Major depressive disorder, recurrent severe without psychotic features; Z68.41 Body mass index [BMI] 40.0-44.9, adult; B95.62 Methicillin resistant Staphylococcus aureus infection as the cause of diseases classified elsewhere; F41.1 Generalized anxiety disorder; R59.0 Localized enlarged lymph nodes; K21.9 Gastro-esophageal reflux disease without esophagitis; F43.12 Post-traumatic stress disorder, chronic; I10 Essential (primary) hypertension; E66.9 Obesity, unspecified; Z98.84 Bariatric surgery status; Z86.14 Personal history of Methicillin resistant Staphylococcus aureus infection; Z87.891 Personal history of nicotine dependence
CPT/HCPCS: 36415; 70487; 80053; 80202; 81001; 81025; 82565; 83605; 83735; 84100; 85025; 87040; 87070; 87075; 87205; 96365; 96372; 99285; J0295; J1650; J1885; J2270; J2405; J3373; J7030; J9999

== ENCOUNTER 2025-09-12 10:00 | Emergency (ER) | payer BC, MEDICAID, SELFPAY ==
[2025-09-12 10:03] VITALS: BP 108/48; PULSE 96; RESP 14; TEMP 36.8; O2SAT 98
--- NOTE | 2025-09-12 10:10 | W.ED.NAVMDI ---
HPI - Nausea/Vomiting/Diarrhea General: Chief complaint: Nausea/Vomiting/Diarrhea Stated complaint: n/v Time Seen by Provider: 09/12/25 10:09 Source: patient Mode of arrival: EMS Limitations: no limitations History of Present Illness: Patient is a 40-year-old female presents to ED today with complaint of epigastric abdominal pain, nausea, vomiting. Patient states she does have a history of a gastric sleeve performed approximately 9 years ago. Patient states she has not had any follow-up since her surgery. Patient states she is not doing all the right things including taking her vitamins. She does not feel like she eats well and has been diagnosed with malnutrition in the past. She states she intermittently will get episodes of nausea and vomiting. She does feel like she withdraws a small amount of blood in her vomit earlier. No gross hematemesis or coffee-ground emesis. Vital signs are stable upon arrival. She is not complaining of changes to bowel movements. Other previous abdominal surgeries include cholecystectomy. No fevers. No recent illness. MD elicited complaint: nausea, vomiting and abdominal pain Pertinent past history: other (bariatric surgery) Onset (ago): day(s) Associated nausea: Yes Associated abdominal pain: Yes Location of pain: Epigastric Severity: moderate Exacerbating factors: eating Relieving factors: none Associated symtoms: Reports nausea; Denies chest pain, dizziness, dysuria, fatigue or malaise Related Data Home Medications ?Medication ?Instructions ?Recorded ?Confirmed fluoxetine 20 mg capsule (Prozac) 20 mg PO DAILY 08/02/21 09/12/25 albuterol sulfate 90 mcg/actuation 2 puff inhalation Q6H PRN 05/24/25 09/12/25 aerosol inhaler (Ventolin HFA) Shortness Of Breath Or Wheezing ibuprofen 200 mg tablet (Advil) 400 mg PO Q6H PRN Fever Or Pain 05/24/25 09/12/25 Previous Rx's ?Medication ?Instructions ?Recorded lisinopril 10 mg tablet 10 mg PO DAILY #30 tabs 05/27/25 Allergies Allergy/AdvReac Type Severity Reaction Status Date / Time escitalopram (From Lexapro) Allergy Severe Unknown Verified 03/10/24 15:27 cefuroxime (From Ceftin) Allergy Intermediate Hives. Verified 03/10/24 15:27 Review of Systems Const: Denies: fever(s), chills, body aches, fatigue or malaise Card: Denies: chest pain Resp: Denies: dyspnea GI: Reports: abdominal pain, nausea and vomiting; Denies: coffee ground emesis, diarrhea, constipation, hematochezia or melena : Denies: flank pain, dysuria or hematuria Musc: Denies: back pain Neuro: Denies: dizziness PFSH ED PFSH: Medical History GERD (gastroesophageal reflux disease) Generalized anxiety disorder Major depressive disorder, recurrent severe without psychotic features Post-traumatic stress disorder, chronic Surgical History History of sleeve gastrectomy Hx laparoscopic cholecystectomy Hx of section History of tonsillectomy and adenoidectomy Social History Smoking and tobacco/nicotine status: former use of tobacco/nicotine Quit status (tobacco/nicotine): has tried quititng Number of times tried to quit tobacco: 4 Second hand smoke exposure: No Current occupation: [employer] Physical Exam Const: COMMON NORMALS: no acute distress, average body habitus, no limitations, healthy appearing, alert and well nourished GENERAL APPEARANCE: cooperative NUTRITIONAL APPEARANCE: overweight ORIENTATION/CONSCIOUSNESS: Yes awake, Yes oriented to person, Yes oriented to place and Yes oriented to time Eye: COMMON NORMALS: no scleral icterus Resp: COMMON NORMALS: normal respiratory effort and clear to auscultation bilaterally AUSCULTATION: clear to auscultation bilaterally Cardio: COMMON NORMALS: regular rate and regular rhythm RATE: regular rate RHYTHM: regular rhythm GI: COMMON NORMALS: Normal to inspection, nondistended, normoactive bowel sounds present, Soft to palpation, No hepatosplenomegaly present and no masses INSPECTION: Yes normal to inspection AUSCULTATION: Yes normoactive bowel sounds PALPATION: Yes Soft to palpation, Yes Tenderness to palpation present (GI) (epigastric), No Guarding due to palpation present (GI), No Rigid due to palpation and Yes No hepatosplenomegaly present : COMMON NORMALS: Yes no CVA tenderness BLADDER/KIDNEY EXAM: Yes no CVA tenderness Back/Pelvis: COMMON NORMALS: no CVA tenderness Neuro: COMMON NORMALS: moves all extremities, no focal motor deficits and no sensory deficits noted SENSORIUM/ORIENTATION: Yes alert, Yes oriented to person, Yes oriented to place and Yes oriented to time Course Vital Signs: Vital signs: Vital Signs Temperature 98.2 F 09/12/25 10:03 Pulse Rate 89 09/12/25 11:07 Respiratory Rate 16 09/12/25 11:07 Blood Pressure 132/84 09/12/25 11:07 Pulse Oximetry 99 09/12/25 11:07 Oxygen Delivery Me thod Room Air 09/12/25 11:07 MDM - Nausea/Vomiting/Diarrhea Medical Decision Making Patient has not had any nausea or vomiting here. She does feel better after IV fluids and Reglan. Vital signs are stable. Blood work overall is unremarkable. Hemoglobin is stable. She has mild hypokalemia 3.3. She was given oral supplementation for this here. Minor elevations to AST/ALT most likely secondary to hepatic steatosis. These are stable. UA grossly contaminated with blood and she is currently on her menstrual cycle. She has no UTI-like symptoms. CT scan showing mildly thick walled appearance of her ascending and transverse colon suspicious for infectious or inflammatory colitis. Symptoms do not overly seem consistent with this. She is reporting normal bowel movements. No diffuse abdominal tenderness. Suspect this will resolve with conservative therapy. She states she does have antiemetic medication at a pharmacy waiting to be picked up. Recommend she follow-up with her primary care provider. We did speak about possibly getting a referral to follow-up with bariatric surgery in [place] for routine/continued surveillance following her gastric sleeve. Return ED precautions discussed. Medical Records I reviewed the patient's medical records. Lab Data I reviewed the patient's lab results. 09/12/25 10:11 09/12/25 10:11 Radiology Impressions Abdomen/Pelvis CT 09/12/25 10:17 IMPRESSION: 1. Mildly thick-walled appearance of the ascending colon and transverse colon and descending colon diffusely, suspicious for infectious or inflammatory colitis. 2. Hepatic Steatosis. Laboratory Results WBC 3.40 10^3/uL (3.29-11.43) 09/12/25 10:11 RBC 4.58 10^6/uL (3.85-5.65) 09/12/25 10:11 Hgb 11.10 g/dL (11.27-16.99) L 09/12/25 10:11 Hct 36.1 % (36-47) 09/12/25 10:11 MCV 78.8 fl (85-98) L 09/12/25 10:11 MCH 24.2 pg (27-33) L 09/12/25 10:11 MCHC 30.7 g/dL (30-55) 09/12/25 10:11 RDW 16.8 % (12.1-15.1) H 09/12/25 10:11 Plt Count 263 10^3/cmm (157-399) 09/12/25 10:11 MPV 8.5 fL (7.4-10.4) 09/12/25 10:11 Neut % (Auto) 62.3 % 09/12/25 10:11 Lymph % (Auto) 26.8 % 09/12/25 10:11 [place] % (Auto) 8.8 % 09/12/25 10:11 Eos % (Auto) 0.9 % 09/12/25 10:11 Baso % (Auto) 0.9 % 09/12/25 10:11 Neut # (Auto) 2.12 10^3/uL (1.8-7.7) 09/12/25 10:11 Lymph # (Auto) 0.9 10^3/uL (0.8-4.8) 09/12/25 10:11 [place] # (Auto) 0.3 10^3/uL (0.2-0.9) 09/12/25 10:11 Eos # (Auto) 0.0 10^3/uL (0.0-0.8) 09/12/25 10:11 Baso # (Auto) 0.0 10^3/uL (0.0-0.1) 09/12/25 10:11 Nucleated RBC % (auto) 0 % 09/12/25 10:11 Nucleated RBCs # 0.0 /100WBC 09/12/25 10:11 Sodium 137 mmol/L (136-145) 09/12/25 10:11 Potassium 3.3 mmol/L (3.5-5.1) L 09/12/25 10:11 Chloride 96 mmol/L (98-107) L 09/12/25 10:11 Carbon Dioxide 26 mmol/L (22-29) 09/12/25 10:11 Anion Gap 18.3 (5-19) 09/12/25 10:11 BUN 7 mg/dL (6-20) 09/12/25 10:11 Creatinine 0.7 mg/dL (0.5-0.9) 09/12/25 10:11 GFR Calculation 93.6 mL/min (90-130) 09/12/25 10:11 Glucose 111 mg/dL (65-115) 09/12/25 10:11 Calculated Osmolality 283 mOsm/kg (285-295) L 09/12/25 10:11 Calcium 8.3 mg/dL (8.5-10.5) L 09/12/25 10:11 Total Bilirubin 1.2 mg/dL (0.15-1.2) 09/12/25 10:11 AST 57 U/L (0-32) H 09/12/25 10:11 ALT 35 U/L (0-33) H 09/12/25 10:11 Alkaline Phosphatase 74 U/L (35-105) 09/12/25 10:11 Total Protein 7.0 g/dL (6.6-8.7) 09/12/25 10:11 Albumin 3.9 g/dL (3.5-5.2) 09/12/25 10:11 Globulin 3.1 g/dL (1.3-4.6) 09/12/25 10:11 Lipase 50 U/L (13-60) 09/12/25 10:11 HCG, Qual Negative (Negative) 09/12/25 10:11 Urine Color [place] (Yellow) A 09/12/25 10:31 Urine Appearance Cloudy (CLEAR) A 09/12/25 10:31 Urine pH 5.5 (5-7) 09/12/25 10:31 Ur Specific [place] 1.034 (1.005-1.030) H 09/12/25 10:31 Urine Protein 2+ (Negative) A 09/12/25 10:31 Urine Glucose (UA) Negative (Normal) 09/12/25 10:31 Urine Ketones 1+ (Negative) H 09/12/25 10:31 Urine Blood 3+ (Negative) A 09/12/25 10:31 Urine Nitrate Negative (Negative) 09/12/25 10:31 Urine Bilirubin 1+ (Negative) H 09/12/25 10:31 Urine Urobilinogen 1.0 mg/dL (Negative) 09/12/25 10:31 Ur Leukocyte Esterase Trace (Negative) A 09/12/25 10:31 Urine RBC >100 /hpf (0-2) H 09/12/25 10:31 Urine WBC 0-5 /hpf (0-5) 09/12/25 10:31 Ur Squamous Epith Cells 6-10 /hpf (0-5) 09/12/25 10:31 Amorphous Sediment Not Reportable 09/12/25 10:31 Urine Bacteria Trace /hpf (NONE) 09/12/25 10:31 Hyaline Casts 16.93 /lpf 09/12/25 10:31 All radiology interpretation(s) finalized by discharge Discharge Plan Discharge Patient Disposition: Home Clinical Impression: Nausea and vomiting Qualifiers: Vomiting type: unspecified Qualified Code(s): R11.2 - Nausea with vomiting, unspecified Condition: Stable Prescriptions: No Action fluoxetine [Prozac] 20 mg capsule 20 mg PO DAILY ibuprofen [Advil] 200 mg Tablet 400 mg PO Q6H PRN (Reason: Fever Or Pain) albuterol sulfate [Ventolin HFA] 90 mcg/actuation HFA aerosol inhaler 2 puff INHALATION Q6H PRN (Reason: Shortness Of Breath Or Wheezing) lisinopril 10 mg Tablet 10 mg PO DAILY Qty: 30 0RF Discharge Orders: Discharge ED (Routine); Ordered 09/12/25 Ordered By: Anya Sidhu Referrals: Donaldo Nicholson [Primary Care Provider, Family Practice] Patient Instructions: Patient Portal & Heidi Instructions Print Language: Indonesian Coding Level of Care Code ED Nurse Practitioner Home Assessments for Sanaz Teixeira
--- NOTE | 2025-09-12 10:17 | CTR_ITS ---
PROCEDURE INFORMATION: Exam: CT Abdomen And Pelvis With Contrast Exam date and time: 09/12/2025 10:52 AM Age: 40 years old Clinical indication: Abdominal pain; Localized; Upper; Prior surgery; Surgery date: 6+ months; PT arrives via EMS from home with complaint of n/v x3 days. PT reports blood in vomit x2 hours. PT reports HX of gastric sleeve and this happens occasionally. PT reports epigastric pain. PT rates pain 5/10. PT alert and oriented with even, unlabored respirations with patent airway. ; Additional info: Upper abdominal pain, n/v; HX of gastric sleeve TECHNIQUE: Imaging protocol: Computed tomography of the abdomen and pelvis with contrast. Radiation optimization: All CT scans at this facility use at least one of these dose optimization techniques: automated exposure control; mA and/or kV adjustment per patient size (includes targeted exams where dose is matched to clinical indication); or iterative reconstruction. Contrast material: OMNI 350; Contrast volume: 100 ml; Contrast route: INTRAVENOUS (IV); COMPARISON: CT kidney stone [id number] 11/20/2022 9:34 PM RADIATION DOSE METRICS: Total DLP (mGy-cm): 860.13 FINDINGS: Lungs: Lung bases are well-aerated. Liver: There is a diffuse low attenuation of the hepatic parenchyma, suspicious for diffuse fatty infiltration. Gallbladder and biliary ducts: Surgically absent gallbladder. No suspicious biliary dilatation. Pancreas: Normal. No ductal dilation. Spleen: Normal. No splenomegaly. Adrenal glands: Normal. No mass. Kidneys and ureters: Normal. No hydronephrosis. Stomach and bowel: Mildly thick-walled appearance of the ascending colon and transverse colon and descending colon diffusely suspicious for infectious or inflammatory colitis. Postsurgical changes of a prior gastric sleeve type procedure. No acute appearing abnormality along the stomach. No small bowel obstruction. Appendix: No evidence of appendicitis. Intraperitoneal space: Unremarkable. No free air. No significant fluid collection. Vasculature: Small calcified structures in the bilateral pelvis and behind the base of the bladder, unchanged in keeping with phleboliths. Lymph nodes: Unremarkable. No enlarged lymph nodes. Urinary bladder: Underdistended, limiting assessment. Reproductive: Anteverted uterus. There appears to be a tampon type device in the vaginal canal. Bones/joints: Unremarkable. No acute fracture. Soft tissues: Unremarkable. CT/CT abdomen pelvis w con* [id number] IMPRESSION: 1. Mildly thick-walled appearance of the ascending colon and transverse colon and descending colon diffusely, suspicious for infectious or inflammatory colitis. 2. Hepatic Steatosis.
[2025-09-12 10:22] LABS: Hematocrit 36.1 % (36-47); Hemoglobin 11.10 g/dL (11.27-16.99); Mean Corpuscular HGB Conc 30.7 g/dL (30-55); Mean Corpuscular Hemoglobin 24.2 pg (27-33); Mean Corpuscular Volume 78.8 fl (85-98); Nucleated Red Blood Cells % 0 %; Platelet Count 263 10^3/cmm (157-399); Red Blood Count 4.58 10^6/uL (3.85-5.65); White Blood Count 3.40 10^3/uL (3.29-11.43)
[2025-09-12] MEDS: metoclopramide 5 mg/mL SDV 2 mL 10 MG IVP (10:26)
[2025-09-12 10:33] VITALS: BP 136/84; PULSE 90; RESP 16; O2SAT 99
[2025-09-12 10:36] LABS: HCG, Serum Qual Negative (Negative)
[2025-09-12 10:37] LABS: Glucose Urine UA Negative (Normal); Nitrate Urine Negative (Negative)
[2025-09-12 10:38] LABS: Alanine Aminotransferase 35 U/L (0-33); Albumin Level 3.9 g/dL (3.5-5.2); Alkaline Phosphatase 74 U/L (35-105); Anion Gap 18.3 (5-19); Aspartate Amino Transferase 57 U/L (0-32); Blood Urea Nitrogen 7 mg/dL (6-20); Calcium 8.3 mg/dL (8.5-10.5); Carbon Dioxide 26 mmol/L (22-29); Chloride 96 mmol/L (98-107); Globulin 3.1 g/dL (1.3-4.6); Glucose 111 mg/dL (65-115); Lipase 50 U/L (13-60); Osmolality Calculated 283 mOsm/kg (285-295); Potassium 3.3 mmol/L (3.5-5.1); Sodium 137 mmol/L (136-145); Total Protein 7.0 g/dL (6.6-8.7)
[2025-09-12 10:42] LABS: Add Urine Microscopic? YES; Universal Test for UA Present (0)
--- NOTE | 2025-09-12 10:50 | PC.NURSE ---
Patient to CT
[2025-09-12] MEDS: iohexol 350 mg/mL 500 mL Btl (per mL) IV (10:57)
[2025-09-12 10:58] LABS: Specific Gravity, Urine 1.034 (1.005-1.030); UA Slide Review UA Slide Review Perf
[2025-09-12] MEDS: potassium chloride oral liq 20 mEq/15 mL UDC 40 MEQ PO (11:06)
[2025-09-12 11:07] VITALS: BP 132/84; PULSE 89; RESP 16; O2SAT 99
[2025-09-12 11:37] VITALS: BP 141/91; PULSE 101; O2SAT 98
== END 2025-09-12 11:44 | disposition home or self-care (01) ==
PROVIDERS: Emergency Provider Physician Assistant; PCP Family Medicine
DX: R11.2 Nausea with vomiting, unspecified (principal); Z87.891 Personal history of nicotine dependence
CPT/HCPCS: 36415; 74177; 80053; 81001; 83690; 84703; 85025; 87086; 96374; 99285; J2765; J7030; J9999